=== PATIENT | female | born 1955 | race Caucasian/White ===

== ENCOUNTER 2016-12-09 20:16 | Inpatient (IN) | payer OTHER ==
[~2016-12-09] VITALS: Ht 172.7 cm; Wt 109.2 kg
[~2016-12-09 20:16] MED LIST: ADAL40KI SC; CEFU1TAB36 PO; CYAN10002 SC; FLUC200T4 PO; INSUINJ14 SC; INSUINJ4 SQ; LCTX PO; OXYC-164 PO; PANT40TA PO; SLWMEC PO; TRAM-10 PO
[2016-12-09] MEDS ORDERED: ALPR-385 PO (20:52)
[2016-12-09] MEDS ORDERED: ZOLP10TA6 PO (20:52)
[2016-12-09] MEDS ORDERED: LSX20 PO (20:52)
[2016-12-09] MEDS ORDERED: OXY/15 PO (20:52)
[2016-12-09] MEDS ORDERED: PROCHLORPERAZINE 5 MG/ML 2 ML VIAL IV STA (21:11)
[2016-12-09] MEDS ORDERED: SODIUM CHLORIDE 0.9% 1000ML 1,000 ML IV STA (21:11)
[2016-12-09] MEDS ORDERED: ONDANSETRON INJ 2 MG/ML 2 ML VIAL IV STA (21:11)
[2016-12-09 21:19] LABS: COMPLETE YES
[2016-12-09] MEDS ORDERED: INSDGI SQ (21:25)
[2016-12-09] MEDS ORDERED: NVLGI/PEN SQ (21:25)
[2016-12-09] MEDS ORDERED: ONDA4TAB9 PO (21:25)
[2016-12-09] MEDS: MoRPHine SULFATE 4 MG/ML 1 ML CARP\\VIAL IV PRN ×2 (21:30→23:57)
--- NOTE | 2016-12-09 21:46 | DIAGNOSTIC IMAGING REPORT ---
ADDENDUM A question 1 cm nodular density within the left upper lobe is likely due to the overlapping first rib. This appears similar to a 2015 examination. Follow-up nonemergent PA and lateral views of the chest are recommended for confirmation. Electronically signed by: Angelo Michele M.D. 12/09/2016 9:49 PM Dictated Date/Time: 12/09/2016 9:48 PM ORIGINAL REPORT CHEST ONE VIEW PORTABLE HISTORY: Generalized abdominal pain. COMPARISON: Chest 09/09/2015. FINDINGS: The lungs are clear. Cardiac silhouette is normal in size. No pleural effusions. No pneumothorax. IMPRESSION: No acute process. Electronically signed by: Angelo Michele M.D. 12/09/2016 9:45 PM Dictated Date/Time: 12/09/2016 9:39 PM
[2016-12-09] MEDS ORDERED: GABA1CAP5 PO (22:00)
--- NOTE | 2016-12-09 22:35 | DIAGNOSTIC IMAGING REPORT ---
ABDOMEN AND PELVIS CT WITHOUT CONTRAST CT DOSE: 1535.66 mGy.cm HISTORY: Generalized abdominal pain. TECHNIQUE: Multiaxial CT images of the abdomen and pelvis were performed without contrast. COMPARISON STUDY: Abdomen and pelvis CT 09/09/2015. FINDINGS: Linear densities the left lung base consistent with subsegmental atelectasis. Stable small cyst/bleb within the right lung base. No pneumoperitoneum. No pneumatosis. Levoscoliosis and degenerative changes within the lumbar spine are again noted. A few tiny stones within the gallbladder. No gallbladder wall thickening. Mild hepatic steatosis. A few punctate calcifications within the right hepatic lobe. The unenhanced spleen, adrenal glands, and pancreas are unremarkable. Right-sided nephrolithiasis. No hydronephrosis. No retroperitoneal lymphadenopathy. Pelvic floor collapse. The uterus is within normal limits. Prior midline incision with a lower incisional hernia containing a few loops of small bowel. This has increased in size. Right lower quadrant ostomy. No evidence for bowel obstruction. There is mild thickening of the small bowel seen throughout the abdomen. Mild inflammatory change seen within the right side the abdomen. This has slightly improved. 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 Evidence for prior subtotal colectomy. Small bowel anastomosis seen within the right side the abdomen. IMPRESSION: 1. Diffuse mild thickening seen throughout the small bowel. This is consistent with a nonspecific enteritis. 2. Improvement in the inflammatory changes within the right side of the abdomen. 3. Multiple fistulas between the bowel loops within the right side the abdomen remains unchanged. 4. No evidence for bowel obstruction. 5. Increase in size in the fat-containing lower midline incisional hernia. 6. Postoperative changes as described above. 7. Right-sided nephrolithiasis. No hydronephrosis. A cholelithiasis. Electronically signed by: Angelo Michele M.D. 12/09/2016 10:33 PM Dictated Date/Time: 12/09/2016 10:25 PM
--- NOTE | 2016-12-09 23:02 | EMERGENCY ROOM VISIT NOTE ---
History Report prepared by Jessica: Paula Arredondo Under the Supervision of: Dr. Artis Watt D.O. First contact with patient: 21:06 Chief Complaint: GI ASSESSMENT Stated Complaint: STOMACH PAIN,VOMITING,HAS CHRONES DISEASE History of Present Illness The patient is a 61 year old female who presents to the Emergency Room with complaints of constant abdominal pain beginning 3 days ago. The patient states that she has multiple hernias and she is having more abdominal pain than usual. She reports that she has a history of Crohn's Disease and she notes that she has a colostomy bag that she has been emptying her bag 6-7 times a day. She reports that she had a CT scan 6 days ago. The patient complains of frequent burping, tiredness, feeling feverish, and nausea. She denies any fever. She notes that the abdominal pain feels like hernias pulling. Source of History: patient Onset: 3 days ago Position: abdomen Quality: other (pulling) Timing: constant Associated Symptoms: + nausea, No fevers Note: The patient complains of frequent burping, tiredness, and feeling feverish. Review of Systems See HPI for pertinent positives & negatives. A total of 10 systems reviewed and were otherwise negative. Past Medical & Surgical Medical Problems: (1) Crohns disease (2) Depression (3) Diverticulosis (4) DM2 (diabetes mellitus, type 2) (5) H/O Clostridium difficile infection (6) S/P ORIF (open reduction internal fixation) fracture Surgical Problems: (1) delivery delivered (2) H/O colonoscopy (3) H/O esophagogastroduodenoscopy (4) H/O exploratory laparotomy (5) History of appendectomy (6) History of partial colectomy Family History Diabetes mellitus FATHER MOTHER FHx: cancer FHx: heart disease Hypertension Social History Smoking Status: Never Smoker Alcohol Use: none Marital Status: single Housing Status: lives with family Occupation Status: disabled Current/Historical Medications Scheduled Adalimumab (Humira Pen), 0.8 ML SC 2XWK Alprazolam (Xanax), 1 MG PO TID Gabapentin (Neurontin), 400 MG PO TID Insulin Aspart (Novolog Flexpen), SQ TIDM Insulin Glargine (Lantus), 45 UNITS SQ HS Oxycodone Hcl (Oxycodone Hcl), 15 MG PO PRN UD Scheduled PRN Furosemide (Furosemide), 20 MG PO DAILY PRN for WT GAIN Ondansetron (Ondansetron HCl), 1 TAB PO Q8 PRN for Nausea Zolpidem Tartrate (Zolpidem Tartrate), 10 MG PO HS PRN for Sleep Allergies Coded Allergies: No Known Allergies (Unverified , 08/15/15) Physical Exam Vital Signs Date Time Temp Pulse Resp B/P (MAP) Pulse Ox O2 Delivery O2 Flow Rate FiO2 12/09/16 21:31 92 16 142/66 99 Room Air 12/09/16 21:11 86 12/09/16 20:21 36.7 87 16 126/77 97 Room Air Physical Exam CONSTITUTIONAL/VITAL SIGNS: Reviewed / noted above. GENERAL: Non-toxic in appearance. INTEGUMENTARY: Warm, dry, and [place].Grade 1 sacral decubitus ulcer. HEAD: Normocephalic. EYES: without scleral icterus or trauma. ENT/OROPHARYNX: clear and moist. LYMPHADENOPATHY/NECK: Is supple without lymphadenopathy or meningismus. RESPIRATORY: Lungs clear and equal. CARDIOVASCULAR: Regular rate and rhythm. GI/ABDOMEN: Soft and nontender. No organomegaly or pulsatile mass. No rebound or guarding. Normal bowel sounds. Colostomy right abdominal zone, intestine is pink with liquid brownish discharge. No significant abdominal tenderness. EXTREMITIES: Warm and well perfused. BACK: No CVA tenderness. NEUROLOGICAL: Intact without focal deficits. PSYCHIATRIC: normal affect. MUSCULOSKELETAL: Normally developed with good muscle tone. Medical Decision & Procedures ER Provider Diagnostic Interpretation: Radiology results as stated below per my review and radiologist interpretation: CHEST ONE VIEW PORTABLE FINDINGS: The lungs are clear. Cardiac silhouette is normal in size. No pleural effusions. No pneumothorax. IMPRESSION: No acute process. Electronically signed by: Angelo Michele M.D. 12/09/2016 9:45 PM Dictated Date/Time: 12/09/2016 9:39 [address] AND PELVIS CT WITHOUT CONTRAST FINDINGS: Linear densities the left lung base consistent with subsegmental atelectasis. Stable small cyst/bleb within the right lung base. No pneumoperitoneum. No pneumatosis. Levoscoliosis and degenerative changes within the lumbar spine are again noted. A few tiny stones within the gallbladder. No gallbladder wall thickening. Mild hepatic steatosis. A few punctate calcifications within the right hepatic lobe. The unenhanced spleen, adrenal glands, and pancreas are unremarkable. Right-sided nephrolithiasis. No hydronephrosis. No retroperitoneal lymphadenopathy. Pelvic floor collapse. The uterus is within normal limits. Prior midline incision with a lower incisional hernia containing a few loops of small bowel. This has increased in size. Right lower quadrant ostomy. No evidence for bowel obstruction. There is mild thickening of the small bowel seen throughout the abdomen. Mild inflammatory change seen within the right side the abdomen. This has slightly improved. 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 Evidence for prior subtotal colectomy. Small bowel anastomosis seen within the right side the abdomen. IMPRESSION: 1. Diffuse mild thickening seen throughout the small bowel. This is consistent with a nonspecific enteritis. 2. Improvement in the inflammatory changes within the right side of the abdomen. 3. Multiple fistulas between the bowel loops within the right side the abdomen remains unchanged. 4. No evidence for bowel obstruction. 5. Increase in size in the fat-containing lower midline incisional hernia. 6. Postoperative changes as described above. 7. Right-sided nephrolithiasis. No hydronephrosis. A cholelithiasis. Electronically signed by: Angelo Michele M.D. 12/09/2016 10:33 PM Dictated Date/Time: 12/09/2016 10:25 PM Laboratory Results 12/09/16 20:55 Red Blood Count 5.52, Mean Corpuscular Volume 90.4, Mean Corpuscular Hemoglobin 31.9, Mean Corpuscular Hemoglobin Concent 35.3, Mean Platelet Volume 11.8, Neutrophils (%) (Auto) 66.9, Lymphocytes (%) (Auto) 24.0, Monocytes (%) (Auto) 8.2, Eosinophils (%) (Auto) 0.3, Basophils (%) (Auto) 0.2, Neutrophils # (Auto) 13.41, Lymphocytes # (Auto) 4.81, Monocytes # (Auto) 1.65, Eosinophils # (Auto) 0.07, Basophils # (Auto) 0.04 12/09/16 20:55 Test 12/09/16 20:55 12/09/16 23:15 White Blood Count 20.06 K/uL (4.8-10.8) Red Blood Count 5.52 M/uL (4.2-5.4) Hemoglobin 17.6 g/dL (12.0-16.0) Hematocrit 49.9 % (37-47) Mean Corpuscular Volume 90.4 fL (80-100) Mean Corpuscular Hemoglobin 31.9 pg (25-34) Mean Corpuscular Hemoglobin Concent 35.3 g/dl (32-36) Platelet Count 237 K/uL (130-400) Mean Platelet Volume 11.8 fL (7.4-10.4) Neutrophils (%) (Auto) 66.9 % Lymphocytes (%) (Auto) 24.0 % Monocytes (%) (Auto) 8.2 % Eosinophils (%) (Auto) 0.3 % Basophils (%) (Auto) 0.2 % Neutrophils # (Auto) 13.41 K/uL (1.4-6.5) Lymphocytes # (Auto) 4.81 K/uL (1.2-3.4) Monocytes # (Auto) 1.65 K/uL (0.11-0.59) Eosinophils # (Auto) 0.07 K/uL (0-0.5) Basophils # (Auto) 0.04 K/uL (0-0.2) RDW Standard Deviation 55.2 fL (36.4-46.3) RDW Coefficient of Variation 16.5 % (11.5-14.5) Immature Granulocyte % (Auto) 0.4 % Immature Granulocyte # (Auto) 0.08 K/uL (0.00-0.02) Prothrombin Time 11.1 SECONDS (9.0-12.0) Prothromb Time International Ratio 1.0 (0.9-1.1) Activated Partial Thromboplast Time 27.2 SECONDS (21.0-31.0) Partial Thromboplastin Ratio 1.0 Anion Gap 11.0 mmol/L (3-11) Estimated GFR () 36.6 Estimated GFR (Non- 31.5 BUN/Creatinine Ratio 10.7 (10-20) Calcium Level 9.6 mg/dl (8.5-10.1) Total Bilirubin 0.6 mg/dl (0.2-1) Direct Bilirubin 0.2 mg/dl (0-0.2) Aspartate Amino Transf (AST/SGOT) 14 U/L (15-37) Alanine Aminotransferase (ALT/SGPT) 24 U/L (12-78) Alkaline Phosphatase 87 U/L (45-117) Total Protein 7.2 gm/dl (6.4-8.2) Albumin 3.6 gm/dl (3.4-5.0) Lipase 98 U/L (73-393) Laboratory results as stated above per my review. Medications Administered Medications (Trade) Dose Ordered Sig/Antoni Route Start Time Stop Time Status Last Admin Dose Admin Sodium Chloride 1,000 ml @ 999 mls/hr Q1H1M STAT IV 12/09/16 21:11 12/09/16 22:11 DC 12/09/16 21:29 999 MLS/HR Morphine Sulfate (MoRPHine SULFATE INJ) 4 mg Q1H PRN IV 12/09/16 21:15 12/23/16 21:14 12/09/16 21:30 4 MG Prochlorperazine Edisylate (Compazine Inj) 10 mg NOW STAT IV 12/09/16 21:11 12/09/16 21:14 DC 12/09/16 21:29 10 MG ED Course 2106: Previous medical records were reviewed. The patient was evaluated in room B6. A complete history and physical examination was performed. 1: Compazine Inj 10mg IV, Zofran Inj 4mg IV, Sodium Chloride 1000 ml @ 999 mls/hr IV. 5: Morphine Sulfate 4mg PRN IV pain. 2259: Discussed the patient's case with Dr. Tomlin of [facility]. The patient will be evaluated for further treatment and disposition. 2308: On reevaluation, the patient is doing well. I discussed the results and findings with the patient. She verbalized agreement of the treatment plan. I spoke with Dr. Tomlin of the [facility] Hospitalist Service. The patient will be evaluated for further management and care. Medical Decision Differential considered: pancreatitis, hepatitis, or acute cholecystitis, AAA, UTI, pyelonephritis, kidney stones, appendicitis, diverticulitis, shingles, bowel obstruction mesenteric ischemia, intussusception,hernia, testicular torsion, ovarian torsion, ruptured ovarian cyst,ectopic , . Medication Reconciliation: I attest that I have personally reviewed the patient' s current medication list. Blood pressure Screening: Patient was found to have normal blood pressure on screening and does not require follow-up. This is a 61-year-old female who presents to the ED with a chief complaint of abdominal discomfort. The patient has had the symptoms for at least 6 days. Her symptoms have progressively worsened. The patient also complains of some nausea. She is becoming increasingly weak as she has not had much of an appetite. Her vital signs are normal. Her physical exam reveals mild diffuse tenderness. Colostomy appears to be functioning normally. There is no was blood in the stool. She does have a grade 1 sacral decubitus ulcer. Chest x- ray did not show acute disease. CT scan of the abdomen and pelvis reveals mild diffuse enteritis. White blood cell count is 20.06. Creatinine is elevated 1.7. Stool sample is pending. The patient will be seen by the hospitalist for further inpatient evaluation and care. Consults Time Called: [phone] Consulting Physician: Dr. Nabor Gregg Returned Call: [phone] Discussed the patient's case with Dr. Tomlin of [facility]. The patient will be evaluated for further treatment and disposition. Impression Primary Impression: Enteritis Additional Impressions: Abdominal pain Weakness Scribe Attestation The scribe's documentation has been prepared under my direction and personally reviewed by me in its entirety. I confirm that the note above accurately reflects all work, treatment, procedures, and medical decision making performed by me. Departure Information Dispostion Being Evaluated By Hospitalist Referrals No Doctor, Assigned (PCP) Patient Instructions [facility] Problem Qualifiers
[2016-12-09] MEDS ORDERED: ONDANSETRON INJ 2 MG/ML 2 ML VIAL ONE (23:48)
[2016-12-10] MEDS ORDERED: INSULIN GLARGINE SOLOSTAR 100 UNITS/ML 3 ML PEN SQ ONE (00:06)
[2016-12-10 00:12] LABS: PARTIAL THROMBOPLASTIN RATIO 1.1; PROTHROMBIN TIME (PATIENT) 10.6 SECONDS (9.0-12.0)
[2016-12-10] MEDS ORDERED: METHYLPREDNISOLONE 125 MG VIAL IV STA (00:12)
[2016-12-10] MEDS ORDERED: ONDANSETRON INJ 2 MG/ML 2 ML VIAL IV PRN (00:15)
[2016-12-10] MEDS ORDERED: OXYCODONE/ACETAMINOPHEN 5-325 TAB PO PRN (00:15)
[2016-12-10] MEDS ORDERED: HYDROmorphone INJ 1 MG/ML SYR IV PRN (00:15)
[2016-12-10] MEDS ORDERED: ACETAMINOPHEN 325 MG TAB PO PRN (00:15)
[2016-12-10 00:20] VITALS: BP 142/84; PULSE 84; TEMP 36.8; O2SAT 97
[2016-12-10 00:22] LABS: BASO % 0.2 %; BASO ABS # 0.03 K/uL (0-0.2); COMPLETE YES; EOS % 1.1 %; HEMATOCRIT 37.8 % (37-47); IG% 0.4 %; LYMPH % 13.3 %; LYMPH ABS # 1.89 K/uL (1.2-3.4); MEAN CELL VOLUME 77.5 fL (80-100); MEAN CORPUSCULAR HEMOGLOBIN 25.4 pg (25-34); MEAN CORPUSCULAR HGB CONC 32.8 g/dl (32-36); MEAN PLATELET VOLUME 9.5 fL (7.4-10.4); MONO % 7.2 %; NEUT % 77.8 %; PLATELET COUNT 289 K/uL (130-400); RED BLOOD COUNT 4.88 M/uL (4.2-5.4); WHITE BLOOD COUNT 14.26 K/uL (4.8-10.8)
[2016-12-10 00:41] LABS: ALKALINE PHOSPHATASE 126 U/L (45-117); ALT/SGPT 22 U/L (12-78); AST/SGOT 30 U/L (15-37); BLOOD UREA NITROGEN 61 mg/dl (7-18); BUN/CREATININE RATIO 24.3 (10-20); CALCIUM 7.9 mg/dl (8.5-10.1); CARBON DIOXIDE 16 mmol/L (21-32); CHLORIDE 107 mmol/L (98-107); GLUCOSE 247 mg/dl (70-99); MAGNESIUM 1.5 mg/dl (1.8-2.4); POTASSIUM 3.6 mmol/L (3.5-5.1); SODIUM 135 mmol/L (136-145); THYROID STIMULATING HORMONE 0.981 uIu/ml (0.300-4.500)
[2016-12-10] MEDS ORDERED: NSS + 20MEQ KCL 1000ML 1,000 ML IV ONE (00:45)
[2016-12-10] MEDS ORDERED: METHYLPREDNISOLONE IV 20 MG in SYRINGE 0 ML IV STA (00:48)
[2016-12-10] MEDS ORDERED: INSULIN ASPART 100 UNITS/ML 3 ML PEN SC ONE (00:53)
[2016-12-10] MEDS ORDERED: GLUCOSE 10 TABS/TUBE PO PRN (01:00)
[2016-12-10] MEDS ORDERED: METRONIDAZOLE / NSS 500 MG in PREMIXED NSS 100 ML IV SCH ×2 (01:00)
[2016-12-10] MEDS ORDERED: GLUCOSE 40% GEL 15 GM TUBE PO PRN (01:00)
[2016-12-10] MEDS ORDERED: GLUCAGON FOR INJ 1 MG VIAL SQ PRN (01:00)
[2016-12-10] MEDS ORDERED: DEXTROSE 50% 50 ML SYR IV PRN (01:00)
[2016-12-10] MEDS: MAGNESIUM SULFATE 1GM / D5W 1 GM in PREMIXED IN D5W 100 ML IV SCH ×2 (01:20→02:26)
[2016-12-10 03:10] VITALS: BP 142/84; PULSE 84; TEMP 36.8
--- NOTE | 2016-12-10 03:52 | HISTORY & PHYSICAL EXAMINATION ---
DATE OF ADMISSION: 12/09/2016 PRIMARY CARE DOCTOR: Dr. Olivas CHIEF COMPLAINT: Worsening abdominal pain. HISTORY OF PRESENT ILLNESS: History obtained from the patient and records. Medical history is significant for IBD status post surgery on Humira, history of C. diff, HTN, DM2 insulin requiring, chronic pain and drug seeking behavior as per records, medication noncompliance as per records. Recent confinement was in September 2015 for SBO, improved w/o surgery. In the last few days, the patient has had worsening of her achy central abdominal pain, with nausea, emesis, increased ostomy output, nonbloody. No fever or chills. Poor appetite. No chest pain or shortness of breath. Patient was brought to the Emergency Room. MEDICAL HISTORY: As above. Last colonoscopy in August 2015 showed stricture at the ileocolonic anastomosis, colon normal. Recent [facility] outpatient visit in last September 2016. As per note, concerns about stricture, medication noncompliance. CT of abdomen and pelvis at [facility] done in November 2016 showed wall thickening with mesenteric edema, right lower quadrant colostomy, left ventral hernia with small bowel loops, gallstones, nonobstructing small stone lower pole right kidney. OPERATIONS: She has had bowel surgery and appendectomy. HOME MEDICATIONS: Include; Humira, Xanax, furosemide, Neurontin, NovoLog, Lantus, oxycodone, Zofran and zolpidem. ALLERGIES: No known drug allergies. FAMILY HISTORY: IBD. PERSONAL AND SOCIAL HISTORY: Nonsmoker. No chronic intake of alcoholic beverages. Disabled. REVIEW OF SYSTEMS: As per HPI. all other ROS negative PHYSICAL EXAMINATION: VITAL SIGNS: Blood pressure was noted to be 140/66, pulse rate 92, RR 16, temperature 36.6 O2 sats 98 on room air. GENERAL: Noted to be wane, obese, in no respiratory distress. SKIN: Normal color. HEENT: [place] palpebral conjunctivae. Dry mucosa. NECK: Short neck. LUNGS: Decreased effort. HEART: Regular rate and rhythm. ABDOMEN: Ostomy noted. Some distention. Central abdominal tenderness. EXTREMITIES: Minimal LE edema. no tenderness NEUROLOGIC: No gross focality except for some lethargy LABORATORIES: Hemoglobin was noted to be 12.4, hematocrit 37 white cell count 14.2 and platelets of 289. Sodium 135, potassium 3.6 chloride 107, CO2 16, crea 2.8 and glucose 247. Hemoglobin A1c from August [address] of abdomen and pelvis showed diffuse thickening small bowel, nonspecific enteritis, multiple fistulas between bowel loops. No bowel obstruction. Postop changes, right-sided nephrolithiasis. C. diff test is pending. ASSESSMENT: 1. Acute on chronic abdominal pain abn CT abd/pelvis hx IBD sp surgery prob IBD flare up rule out recurrent Clostridium difficile. Patient is not septic. 2. acute renal failure secondary to above 3. HTN, slightly elevated 4. DM2, insulin requiring suboptimal control as of recent HgA1c. 5. deconditioning PLAN: GMF analgesia, steroids. GI consult for possible IBD flare up and abdominal pain. (Patient known to Dr. Bee.) baseline UA. monitor creatinine response to IVF stool C. diff. Flagyl for now for presumptive C. diff in light of leukocytosis. dc Flagyl if stool cdif negative DVT prophylaxis, Heparin subQ. Basal insulin adjusted for clear liquid diet for now ISS BG goal 140-180. Carb count coverage indicated for suboptimal blood sugar control. Patient is due for hemoglobin A1c check. PT/OT eval. Full code. MTDD
[2016-12-10 06:23] LABS: ESTIMATED AVERAGE GLUCOSE 226 mg/dl; HA1C FLAG Normal (Normal)
[2016-12-10 06:42] LABS: MAGNESIUM 2.1 mg/dl (1.8-2.4)
[2016-12-10 07:42] VITALS: BP 124/67; PULSE 92; TEMP 36.5; O2SAT 98
[2016-12-10] MEDS ORDERED: METHYLPREDNISOLONE IV 20 MG in SYRINGE 0 ML IV SCH (08:00)
[2016-12-10] MEDS: GABAPENTIN 100 MG CAP PO SCH ×3 (08:09→20:51)
[2016-12-10] MEDS: ALPRAZOLAM 0.5 MG TAB PO SCH ×3 (08:09→20:51)
[2016-12-10] MEDS: INSULIN ASPART 100 UNITS/ML 3 ML PEN SC SCH ×4 (08:14→20:51)
[2016-12-10] MEDS: HEPARIN SOD 5000 UNIT/0.5 ML CARP SQ SCH ×3 (08:14→23:28)
[2016-12-10 08:23] LABS: COMPLETE YES; EOS % 0.1 %; HEMATOCRIT 35.9 % (37-47); IG% 0.4 %; LYMPH % 7.2 %; LYMPH ABS # 0.93 K/uL (1.2-3.4); MEAN CELL VOLUME 78.4 fL (80-100); MEAN CORPUSCULAR HEMOGLOBIN 26.2 pg (25-34); MEAN CORPUSCULAR HGB CONC 33.4 g/dl (32-36); MEAN PLATELET VOLUME 9.6 fL (7.4-10.4); MONO % 0.9 %; NEUT % 91.4 %; PLATELET COUNT 240 K/uL (130-400); RED BLOOD COUNT 4.58 M/uL (4.2-5.4); WHITE BLOOD COUNT 12.87 K/uL (4.8-10.8)
[2016-12-10] MEDS ORDERED: INSULIN GLARGINE SOLOSTAR 100 UNITS/ML 3 ML PEN SC ONE (08:27)
[2016-12-10 08:55] LABS: BLOOD UREA NITROGEN 59 mg/dl (7-18); BUN/CREATININE RATIO 26.9 (10-20); CARBON DIOXIDE 14 mmol/L (21-32); CHLORIDE 108 mmol/L (98-107); GLUCOSE 411 mg/dl (70-99); POTASSIUM 4.1 mmol/L (3.5-5.1); SODIUM 134 mmol/L (136-145)
[2016-12-10] MEDS ORDERED: INSULIN GLARGINE SOLOSTAR 100 UNITS/ML 3 ML PEN SC SCH ×5 (09:00→21:00)
[2016-12-10] MEDS ORDERED: INSULIN GLARGINE SOLOSTAR 100 UNITS/ML 3 ML PEN SQ SCH (09:00)
[2016-12-10 09:10] LABS: BETA-HYDROXYBUTYRATE 2.61 mg/dL (0.2-2.81)
[2016-12-10 10:38] VITALS: BP 124/74; PULSE 79; O2SAT 99
--- NOTE | 2016-12-10 11:50 | Progress Note ---
Progress Note Date of Service Dec 10, 2016. Progress Note ATTENDING NOTE : pt admitted with Crohn's colitis /flare started on IV Steroid BSG elevated > 400 baseline poorly controlled DM Hb A1c 9.5 ( Estimated avg glucose 226 ) tightened insulin sliding scale coverage increased basal Lantus to 25 U BID will give 5 units of extra dose now ( got 20 U in AM ) Pharmacy consulted for glycemic management
[2016-12-10] MEDS ORDERED: PHARMACY GLYCEMIC MGMT CONSULT PRN (11:54)
[2016-12-10] MEDS: SODIUM CHLORIDE 0.9% 1000ML 1,000 ML IV SCH ×2 (12:11→22:05)
[2016-12-10] MEDS ORDERED: INSULIN REGULAR 5 UNITS in SYRINGE 0 ML IV ONE (12:15)
--- NOTE | 2016-12-10 13:22 | Gastrointestinal Consultation ---
Gastrointestinal Consultation Date of Consultation: Dec 10, 2016 Attending Physician: Devonte Bradford Consulting Physician: Jasmyne Bee Reason for Consultation: Abd pain; abnormal CT scan History of Present Illness Patient is a 61 year old female who presented to ED for c/o abd pain. She has hx of Crohn's disease complicated by penetrating, fistulizing, stricturing disease of small bowel. She has hx of abscess, fistula, phlegmon formation ended up w partial colectomy and R sided colostomy, abd hernias. She also had recurrent issues w sepsis, pneumonia, SBO. Unfortunately she often misses her GI appt and also has hx of med non compliance, drug seeking behaviors. She was seen by Colorectal Surgery (Dr. Suimt Juarez) in September 2016 - surgical plans at this time for ongoing abd pain, hernia repair or ostomy reversal until her Crohn's is better managed. She also saw Dr. Bee last in September 2016. She reports that she is currently using her Humira injections 2x a month. Denies use of antibx, steroids. She sees a Pain Management physician in [facility] prescribed Oxycodone for abd pain, which she takes 4x a day as needed. Her last colonoscopy was done on 08/2015: severe stenosis at ileocolonic anastomosis. She noticed increased abd pain recently in last few days w increased ostomy output, n/v. She has decreased appetite, but tolerated CL diet this AM and willing for dietary advancement. Her ostomy is noted to put out soft but formed stools. No blood noted. Labs showed leukocytosis but this is at her baseline, H/ H stable. CMP notable for increased Cr to 2.2, from baseline mid 1s. Cdiff negative. CT abd/pelvis : IMPRESSION: 1. Diffuse mild thickening seen throughout the small bowel. This is consistent with a nonspecific enteritis. 2. Improvement in the inflammatory changes within the right side of the abdomen. 3. Multiple fistulas between the bowel loops within the right side the abdomen remains unchanged. 4. No evidence for bowel obstruction. 5. Increase in size in the fat-containing lower midline incisional hernia. 6. Postoperative changes as described above. 7. Right-sided nephrolithiasis. No hydronephrosis. A cholelithiasis. Past Medical/Surgical History Medical Problems: (1) Abdominal pain Status: Acute (2) Enteritis Status: Acute (3) Fall Status: Acute (4) Feculent vomit on examination Status: Acute (5) Hydronephrosis, left Status: Acute (6) Incarcerated ventral hernia Status: Acute (7) Low back pain Status: Acute (8) Rib pain on right side Status: Acute (9) Right shoulder pain Status: Acute (10) Small bowel obstruction Status: Acute (11) Ureteral calculus, left Status: Acute (12) Weakness Status: Acute Past Medical History: See above, also hx of Cdiff, DM II. Past Surgical History: See above. Family History Diabetes mellitus FATHER MOTHER FHx: cancer FHx: heart disease Hypertension Social History Smoking Status: Unknown if Ever Smoked Alcohol Use: none Marital Status: single Housing Status: lives with family Occupation Status: disabled Allergies Coded Allergies: No Known Allergies (Unverified , 08/15/15) Current Medications Home Meds and Scripts Medications Dose Route/Sig Max Daily Dose Days Date Category Dose Instructions Ondansetron HCl (Ondansetron) 4 Mg Tab 1 Tab PO Q8 PRN 12/09/16 Reported Novolog Flexpen (Insulin Aspart) 100 Units/Ml Inj SQ TIDM 12/09/16 Reported PER SLIDING SCALE Lantus (Insulin Glargine) 100 Unit/Ml Inj 45 Units SQ HS 12/09/16 Reported Oxycodone Hcl 15 Mg Tab 15 Mg PO PRN UD 12/09/16 Reported Zolpidem Tartrate 10 Mg Tab 10 Mg PO HS PRN 12/09/16 Reported Xanax (Alprazolam) 1 Mg Tab 1 Mg PO TID 12/09/16 Reported Furosemide 20 Mg Tab 20 Mg PO DAILY PRN 12/09/16 Reported Neurontin (Gabapentin) 400 Mg Cap 400 Mg PO TID 09/09/15 Reported Humira Pen (Adalimumab) 40 Mg/0.8 Ml Kit 0.8 Ml SC [id number] 07/24/15 Reported Review of Systems Constitutional: No fever, No chills Respiratory: No cough, No shortness of breath Cardiac: No chest pain Abdomen: + pain, + nausea, + vomiting, + diarrhea, No GI bleeding Skin: No rash, No itch Physical Exam Date Time Temp Pulse Resp B/P (MAP) Pulse Ox O2 Delivery O2 Flow Rate FiO2 12/10/16 08:00 Room Air 12/10/16 07:42 36.5 92 18 124/67 (86) 98 Room Air 12/10/16 03:10 36.8 84 18 142/84 Room Air 12/10/16 00:20 36.8 84 18 142/84 (103) 97 Room Air 12/10/16 00:14 85 14 133/67 94 12/09/16 23:38 87 18 119/75 99 Room Air 12/09/16 21:31 92 16 142/66 99 Room Air 12/09/16 21:11 86 12/09/16 20:21 36.7 87 16 126/77 97 Room Air General Appearance: + mild distress, + obese Eyes: normal inspection, PERRL, EOMI Neck: supple, no JVD, trachea midline Respiratory/Chest: normal breath sounds, no respiratory distress, no accessory muscle use Cardiovascular: regular rate, rhythm, no gallop, no murmur Abdomen: + pertinent finding (Diffuse abd pain but mostly on LLQ area. R sided ostomy w brown, soft formed stools ) Neurologic/Psych: alert, normal mood/affect, oriented x 3 Skin: normal color, no jaundice, no rash Laboratory Results Last 24 Hours Test 12/09/16 20:55 12/09/16 23:34 12/10/16 01:26 12/10/16 05:54 White Blood Count K/uL 14.26 K/uL Red Blood Count M/uL 4.88 M/uL Hemoglobin g/dL 12.4 g/dL Hematocrit % 37.8 % Mean Corpuscular Volume fL 77.5 fL Mean Corpuscular Hemoglobin pg 25.4 pg Mean Corpuscular Hemoglobin Concent g/dl 32.8 g/dl Platelet Count K/uL 289 K/uL Mean Platelet Volume fL 9.5 fL Neutrophils (%) (Auto) % 77.8 % Lymphocytes (%) (Auto) % 13.3 % Monocytes (%) (Auto) % 7.2 % Eosinophils (%) (Auto) % 1.1 % Basophils (%) (Auto) % 0.2 % Neutrophils # (Auto) K/uL 11.11 K/uL Lymphocytes # (Auto) K/uL 1.89 K/uL Monocytes # (Auto) K/uL 1.02 K/uL Eosinophils # (Auto) K/uL 0.15 K/uL Basophils # (Auto) K/uL 0.03 K/uL RDW Standard Deviation fL 42.9 fL RDW Coefficient of Variation % 15.3 % Immature Granulocyte % (Auto) % 0.4 % Immature Granulocyte # (Auto) K/uL 0.06 K/uL Prothrombin Time SECONDS 10.6 SECONDS Prothromb Time International Ratio 1.0 Activated Partial Thromboplast Time SECONDS 28.5 SECONDS Partial Thromboplastin Ratio 1.1 Sodium Level mmol/L 135 mmol/L Potassium Level mmol/L 3.6 mmol/L Chloride Level mmol/L 107 mmol/L Carbon Dioxide Level mmol/L 16 mmol/L Anion Gap mmol/L 12.0 mmol/L Blood Urea Nitrogen mg/dl 61 mg/dl Creatinine mg/dl 2.50 mg/dl Est Creatinine Clear Calc Drug Dose ml/min Estimated GFR () 22.9 Estimated GFR (Non- 19.8 BUN/Creatinine Ratio 24.3 Random Glucose mg/dl 247 mg/dl Calcium Level mg/dl 7.9 mg/dl Total Bilirubin mg/dl 0.2 mg/dl Direct Bilirubin mg/dl < 0.1 mg/dl Aspartate Amino Transf (AST/SGOT) U/L 30 U/L Alanine Aminotransferase (ALT/SGPT) U/L 22 U/L Alkaline Phosphatase U/L 126 U/L Total Protein gm/dl 8.0 gm/dl Albumin gm/dl 2.9 gm/dl Lipase U/L 538 U/L 379 U/L Estimated Average Glucose 226 mg/dl Hemoglobin A1c 9.5 % Magnesium Level 1.5 mg/dl 2.1 mg/dl Thyroid Stimulating Hormone (TSH) 0.981 uIu/ml Bedside Glucose 228 mg/dl Test 12/10/16 07:41 12/10/16 08:13 12/10/16 11:33 Bedside Glucose 355 mg/dl 450 mg/dl White Blood Count 12.87 K/uL Red Blood Count 4.58 M/uL Hemoglobin 12.0 g/dL Hematocrit 35.9 % Mean Corpuscular Volume 78.4 fL Mean Corpuscular Hemoglobin 26.2 pg Mean Corpuscular Hemoglobin Concent 33.4 g/dl Platelet Count 240 K/uL Mean Platelet Volume 9.6 fL Neutrophils (%) (Auto) 91.4 % Lymphocytes (%) (Auto) 7.2 % Monocytes (%) (Auto) 0.9 % Eosinophils (%) (Auto) 0.1 % Basophils (%) (Auto) 0.0 % Neutrophils # (Auto) 11.77 K/uL Lymphocytes # (Auto) 0.93 K/uL Monocytes # (Auto) 0.11 K/uL Eosinophils # (Auto) 0.01 K/uL Basophils # (Auto) 0.00 K/uL RDW Standard Deviation 44.4 fL RDW Coefficient of Variation 15.4 % Immature Granulocyte % (Auto) 0.4 % Immature Granulocyte # (Auto) 0.05 K/uL Sodium Level 134 mmol/L Potassium Level 4.1 mmol/L Chloride Level 108 mmol/L Carbon Dioxide Level 14 mmol/L Anion Gap 12.0 mmol/L Blood Urea Nitrogen 59 mg/dl Creatinine 2.20 mg/dl Estimated GFR () 26.8 Estimated GFR (Non- 23.1 BUN/Creatinine Ratio 26.9 Random Glucose 411 mg/dl Calcium Level 8.0 mg/dl Beta-Hydroxybutyric Acid 2.61 mg/dL Impression Patient is a 61 year old female w complicated Crohn's disease (fistula, stenosis , phlegmon development), s/p partial colectomy w R sided ostomy creation admitted for increased abd pain, n/v, diarrhea. Plan - Med compliance to be stressed in regards to Crohn's therapy. Currently on Humira injections [id number]. - She may f/u w Colorectal Surgery per previous schedule appt on 01/05/17 to discuss surgical option if any. - Avoid narcotics - Full liquid w low residue diet, advance as tolerated - Will give short steroid taper: DC Methylpred; start Prednisone 40mg daily x 3 days, 30mg daily x 3 days, 20mg daily x 3 days, 10mg daily x 3 days, then 5mg daily x 3 days. - Will defer antibx use at this time - Cdiff negative, will add stool cx - IVF support and symptomatic management otherwise.
[2016-12-10 13:33] VITALS: Ht 172.7 cm; Wt 109.2 kg
--- NOTE | 2016-12-10 13:54 | Pharmacy Progress Note ---
Glycemic Control Intl Consult Date of Service Dec 10, 2016. Scope Glycemic Pharmacist consulted by Dr Stratton on 12/10/16 for glycemic control and to write orders per [facility] inpatient glycemic control protocol Objective Accuchecks BSG (last 24hrs): Test 12/09/16 20:55 12/09/16 23:34 12/10/16 01:26 12/10/16 07:41 Random Glucose mg/dl (70-99) 247 mg/dl (70-99) Bedside Glucose 228 mg/dl (70-90) 355 mg/dl (70-90) Test 12/10/16 08:13 12/10/16 11:33 Random Glucose 411 mg/dl (70-99) Bedside Glucose 450 mg/dl (70-90) Laboratory Data (last 24hrs) Test 12/09/16 20:55 12/09/16 23:34 12/10/16 08:13 Anion Gap mmol/L 12.0 mmol/L 12.0 mmol/L BUN/Creatinine Ratio 24.3 26.9 Blood Urea Nitrogen mg/dl 61 mg/dl 59 mg/dl Creatinine mg/dl 2.50 mg/dl 2.20 mg/dl Potassium Level mmol/L 3.6 mmol/L 4.1 mmol/L Sodium Level mmol/L 135 mmol/L 134 mmol/L White Blood Count K/uL 14.26 K/uL 12.87 K/uL Red Blood Count M/uL 4.88 M/uL 4.58 M/uL Hemoglobin g/dL 12.4 g/dL 12.0 g/dL Hematocrit % 37.8 % 35.9 % Mean Corpuscular Volume fL 77.5 fL 78.4 fL Mean Corpuscular Hemoglobin pg 25.4 pg 26.2 pg Mean Corpuscular Hemoglobin Concent g/dl 32.8 g/dl 33.4 g/dl Platelet Count K/uL 289 K/uL 240 K/uL Mean Platelet Volume fL 9.5 fL 9.6 fL Neutrophils (%) (Auto) % 77.8 % 91.4 % Lymphocytes (%) (Auto) % 13.3 % 7.2 % Monocytes (%) (Auto) % 7.2 % 0.9 % Eosinophils (%) (Auto) % 1.1 % 0.1 % Basophils (%) (Auto) % 0.2 % 0.0 % Neutrophils # (Auto) K/uL 11.11 K/uL 11.77 K/uL Lymphocytes # (Auto) K/uL 1.89 K/uL 0.93 K/uL Monocytes # (Auto) K/uL 1.02 K/uL 0.11 K/uL Eosinophils # (Auto) K/uL 0.15 K/uL 0.01 K/uL Basophils # (Auto) K/uL 0.03 K/uL 0.00 K/uL Hemoglobin A1c 9.5 % HbA1c Test 12/09/16 23:34 Hemoglobin A1c 9.5 % (4.5-5.6) H Recent Pertinent Medications Outpatient Anti-diabetic Regimen: * NONCOMPLIANT * Pt states she only takes insulin "when tongue is thick" * She is prescribed Lantus 60 u BID and Novolog 15 units with meals Risk Factors for Insulin Resistance: * Steroids * Recent Surgery * Diet Assessment & Plan ASSESSMENT: * 61 yo diabetic F admitted with N/V, abdominal pain, noted to have severe hyperglycemia on admission * Pt typically does not take insulin at home so at baseline she is very resistant * She was given 10 units of Lantus last night by admitting provider, but BSGs continued to climb * She was initiated on Solumedrol IV and became very hyperglycemic after 2 doses, BSGs >450 mg/dL * Provider gave additional Lantus 20 units X 1 and consulted pharmacy * Today, IV steroids have been changed to PO prednisone taper * Given known resistance and steroid use, initiate insulin drip per protocol * In addition to the insulin drip, give scheduled Lantus and use set carb ratio * This will make transitioning off insulin drip easier * Pt remains on full liquid diet and as this advances her insulin needs will also increase * ADA & AACE recommend a goal blood sugar range 140-180 mg/dl for the majority of critically ill & non-critically ill patients. However, more stringent targets may be selected in individual cases. PLAN FOR INPATIENT GLYCEMIC CONTROL: * Initiate insulin drip per protocol * Goal range 140-180 mg/dL * Correctional Insulin with insulin drip * Novolog [facility] for carb coverage * Utilize carb ratio of 1 unit per 5 grams CHO consumed instead of calculator * Please note that the plan above was derived based on current level of insulin resistance and hospital stress. These recommendations are appropriate for inpatient admission only. Plan of care upon discharge will need to be reassessed to avoid potential outpatient hypo/hyperglycemia. Thank you.
[2016-12-10] MEDS ORDERED: INSULIN IV INFUSION PROTOCOL STA (14:19)
[2016-12-10] MEDS ORDERED: MODERATE STRESS LEVEL ONE (14:30)
[2016-12-10] MEDS ORDERED: INSULIN PROTOCOL GOAL RANGE ONE (14:30)
[2016-12-10] MEDS ORDERED: INSULIN PROTOCOL GOAL RANGE SCH (14:32)
[2016-12-10] MEDS ORDERED: INSULIN HUMAN REGULAR IV BOLUS 2.5 UNIT in SYRINGE 0 ML IV SCH (15:30)
[2016-12-10] MEDS: INSULIN REGULAR 250 UNITS in SODIUM CHLORIDE 0.9% 250ML 250 ML IV SCH ×4 (15:54→20:30)
[2016-12-10 16:00] VITALS: O2SAT 98
[2016-12-10 16:58] VITALS: BP 113/69; PULSE 74; TEMP 36.3; O2SAT 99
--- NOTE | 2016-12-10 22:34 | Progress Note ---
Internal Med Progress Note Date of Service: Dec 10, 2016. Provider Documentation: SUBJECTIVE: says feels very hungry , wants diet to be advanced to solid takes Xanax 1 mg three times daily as needed for anxiety -wants it be resumed as feeling overtly stressed for being in hospital with Crohn 's flare -with possibility that her chance of having colostomy reversal may not be possible soon On insulin gtt for persisted Hyperglycemia , while on steroid due to Crohn' s disease OBJECTIVE: Vital Signs-as noted below Exam: General-morbidly obese , anxious Eyes-sclera non icteric Lungs-CTA Heart-regular S1/S2 Abdomen-multiple surgical scar present , tenderness on RLQ , colostomy present Extremities-+ 1-2 bilat lower ext edema Neuro-AAO x3, no focal deficit Lab data as noted below. ASSESSMENT & PLAN: CROHN'S COLITIS : presents with Flare of inflammatory bowel disease follows with [facility] on [place] -questionable compliance appreciate input form GI team IV steroid D/yang started on slow taper with PO Prednisone Diet will be advanced to low fiber diet monitor clinically will need continued out pt follow up with GI HYPERGLYCEMIA /POORLY CONTROLLED DM TYPE 2 : BSG > 400 due to steroid , poor baseline glycemic control HB A1c > 9 appreciate input form Pharmacy for glycemic management started on IV insulin gtt pt is continued on Basal Lantus for easy transition to Subq regimen as BSG improves with reducing the steroid dose CHRONIC PAIN SYNDROME : follows with Pain clinic pt wants her home regimen of Oxycodone 15 mg QID PRN To be resumed mentions Percocet is not effective for pain control PRN Percocet /IV Dilaudid D/yang ordered for Oxycodone PRN per home regimen ANXIETY DISORDER : on Xanax 1 mg PO TID prn at home resumed DVT PROPHYLAXIS High risk for DVT sub q heparin DISPOSITION will be discharged home when medically stable Medicine follow up with Dr Olivas GI follow up with Dr Bee Vital Signs: Date Time Temp Pulse Resp B/P (MAP) Pulse Ox O2 Delivery O2 Flow Rate FiO2 12/10/16 16:58 36.3 74 18 113/69 (84) 99 Room Air 12/10/16 16:00 98 Room Air 12/10/16 10:38 79 99 12/10/16 08:00 Room Air 12/10/16 07:42 36.5 92 18 124/67 (86) 98 Room Air 12/10/16 03:10 36.8 84 18 142/84 Room Air 12/10/16 00:20 36.8 84 18 142/84 (103) 97 Room Air 12/10/16 00:14 85 14 133/67 94 12/09/16 23:38 87 18 119/75 99 Room Air Lab Results: Results Past 24 Hours Test 12/09/16 23:34 12/10/16 01:26 12/10/16 05:54 12/10/16 07:41 Range/Units White Blood Count 14.26 4.8-10.8 K/uL Red Blood Count 4.88 4.2-5.4 M/uL Hemoglobin 12.4 12.0-16.0 g/dL Hematocrit 37.8 37-47 % Mean Corpuscular Volume 77.5 80-100 fL Mean Corpuscular Hemoglobin 25.4 25-34 pg Mean Corpuscular Hemoglobin Concent 32.8 32-36 g/dl Platelet Count 289 130-400 K/uL Mean Platelet Volume 9.5 7.4-10.4 fL Neutrophils (%) (Auto) 77.8 % Lymphocytes (%) (Auto) 13.3 % Monocytes (%) (Auto) 7.2 % Eosinophils (%) (Auto) 1.1 % Basophils (%) (Auto) 0.2 % Neutrophils # (Auto) 11.11 1.4-6.5 K/uL Lymphocytes # (Auto) 1.89 1.2-3.4 K/uL Monocytes # (Auto) 1.02 0.11-0.59 K/uL Eosinophils # (Auto) 0.15 0-0.5 K/uL Basophils # (Auto) 0.03 0-0.2 K/uL RDW Standard Deviation 42.9 36.4-46.3 fL RDW Coefficient of Variation 15.3 11.5-14.5 % Immature Granulocyte % (Auto) 0.4 % Immature Granulocyte # (Auto) 0.06 0.00-0.02 K/uL Prothrombin Time 10.6 9.0-12.0 SECONDS Prothromb Time International Ratio 1.0 0.9-1.1 Activated Partial Thromboplast Time 28.5 21.0-31.0 SECONDS Partial Thromboplastin Ratio 1.1 Sodium Level 135 136-145 mmol/L Potassium Level 3.6 3.5-5.1 mmol/L Chloride Level 107 98-107 mmol/L Carbon Dioxide Level 16 21-32 mmol/L Anion Gap 12.0 3-11 mmol/L Blood Urea Nitrogen 61 7-18 mg/dl Creatinine 2.50 0.60-1.20 mg/dl Estimated GFR () 22.9 Estimated GFR (Non- 19.8 BUN/Creatinine Ratio 24.3 10-20 Random Glucose 247 70-99 mg/dl Estimated Average Glucose 226 mg/dl Hemoglobin A1c 9.5 4.5-5.6 % Calcium Level 7.9 8.5-10.1 mg/dl Magnesium Level 1.5 2.1 1.8-2.4 mg/dl Total Bilirubin 0.2 0.2-1 mg/dl Direct Bilirubin < 0.1 0-0.2 mg/dl Aspartate Amino Transf (AST/SGOT) 30 15-37 U/L Alanine Aminotransferase (ALT/SGPT) 22 12-78 U/L Alkaline Phosphatase 126 45-117 U/L Total Protein 8.0 6.4-8.2 gm/dl Albumin 2.9 3.4-5.0 gm/dl Lipase 538 379 73-393 U/L Thyroid Stimulating Hormone (TSH) 0.981 0.300-4.500 uIu/ml Bedside Glucose 228 355 70-90 mg/dl Test 12/10/16 08:13 12/10/16 11:33 12/10/16 13:42 12/10/16 14:52 Range/Units White Blood Count 12.87 4.8-10.8 K/uL Red Blood Count 4.58 4.2-5.4 M/uL Hemoglobin 12.0 12.0-16.0 g/dL Hematocrit 35.9 37-47 % Mean Corpuscular Volume 78.4 80-100 fL Mean Corpuscular Hemoglobin 26.2 25-34 pg Mean Corpuscular Hemoglobin Concent 33.4 32-36 g/dl Platelet Count 240 130-400 K/uL Mean Platelet Volume 9.6 7.4-10.4 fL Neutrophils (%) (Auto) 91.4 % Lymphocytes (%) (Auto) 7.2 % Monocytes (%) (Auto) 0.9 % Eosinophils (%) (Auto) 0.1 % Basophils (%) (Auto) 0.0 % Neutrophils # (Auto) 11.77 1.4-6.5 K/uL Lymphocytes # (Auto) 0.93 1.2-3.4 K/uL Monocytes # (Auto) 0.11 0.11-0.59 K/uL Eosinophils # (Auto) 0.01 0-0.5 K/uL Basophils # (Auto) 0.00 0-0.2 K/uL RDW Standard Deviation 44.4 36.4-46.3 fL RDW Coefficient of Variation 15.4 11.5-14.5 % Immature Granulocyte % (Auto) 0.4 % Immature Granulocyte # (Auto) 0.05 0.00-0.02 K/uL Sodium Level 134 136-145 mmol/L Potassium Level 4.1 3.5-5.1 mmol/L Chloride Level 108 98-107 mmol/L Carbon Dioxide Level 14 21-32 mmol/L Anion Gap 12.0 3-11 mmol/L Blood Urea Nitrogen 59 7-18 mg/dl Creatinine 2.20 0.60-1.20 mg/dl Estimated GFR () 26.8 Estimated GFR (Non- 23.1 BUN/Creatinine Ratio 26.9 10-20 Random Glucose 411 70-99 mg/dl Calcium Level 8.0 8.5-10.1 mg/dl Beta-Hydroxybutyric Acid 2.61 0.2-2.81 mg/dL Bedside Glucose 450 426 389 70-90 mg/dl Test 12/10/16 17:05 12/10/16 18:28 12/10/16 19:26 12/10/16 19:39 Range/Units Bedside Glucose 242 272 260 70-90 mg/dl Test 12/10/16 20:41 Range/Units Bedside Glucose 266 70-90 mg/dl Microbiology Results 12/10/16 Shiga Toxin Test, Received Pending 12/10/16 Stool Culture, Received Pending 12/10/16 C.difficile Toxin B Gene (PCR) - Final, Complete No C. difficile toxin B gene detected 12/09/16 C.difficile Toxin B Gene (PCR) - Final, Complete No C. difficile toxin B gene detected
[2016-12-10] MEDS: OXYCODONE HCL IR 5 MG TAB (IMMEDIATE RELEASE) PO PRN (23:54)
[2016-12-11] VITALS: BP 122/77; PULSE 74; TEMP 36.5; O2SAT 94
[2016-12-11] MEDS ORDERED: INSULIN ASPART 100 UNITS/ML 3 ML PEN SC SCH
[2016-12-11 00:56] LABS: URINE APPEARANCE CLOUDY (CLEAR); URINE BILIRUBIN NEG (NEG); URINE COLOR YELLOW; URINE NITRITE NEG (NEG); UROBILINOGEN NEG (NEG); ZZUR CULT IF INDIC CLEAN CATCH YES
[2016-12-11 00:57] LABS: MANUAL MICROSCOPIC REQUIRED? NO; REVIEW REQ? YES
[2016-12-11 01:17] LABS: URINE PATH CASTS 0-3 GRANULAR CASTS /lpf (0)
[2016-12-11] MEDS: INSULIN REGULAR 250 UNITS in SODIUM CHLORIDE 0.9% 250ML 250 ML IV SCH ×6 (02:37→06:26)
[2016-12-11] MEDS ORDERED: METOPROLOL TARTRATE 1 MG/ML VIAL ONE (04:51)
[2016-12-11] MEDS ORDERED: NURSING VERBAL MED ORDER ONE ×2 (05:00→05:15)
[2016-12-11] MEDS ORDERED: METOPROLOL TARTRATE 1 MG/ML VIAL IV STA (05:00)
[2016-12-11] MEDS: ALPRAZOLAM 0.5 MG TAB PO SCH ×2 (05:44→14:02)
[2016-12-11 07:00] LABS: ALB/GLOB RATIO 0.6 (0.9-2); BUN/CREATININE RATIO 30.1 (10-20); CALCIUM 7.7 mg/dl (8.5-10.1); CREATININE 1.7 mg/dl (0.60-1.20); POTASSIUM 3.7 mmol/L (3.5-5.1)
[2016-12-11 07:43] VITALS: BP 103/65; PULSE 63; TEMP 36.4; O2SAT 99
[2016-12-11] MEDS ORDERED: INSULIN GLARGINE SOLOSTAR 100 UNITS/ML 3 ML PEN SC ONE (08:00)
[2016-12-11] MEDS: GABAPENTIN 100 MG CAP PO SCH ×3 (08:27→20:54)
[2016-12-11] MEDS: INSULIN ASPART 100 UNITS/ML 3 ML PEN SC SCH ×4 (08:36→21:01)
[2016-12-11] MEDS: HEPARIN SOD 5000 UNIT/0.5 ML CARP SQ SCH ×3 (08:37→23:19)
[2016-12-11] MEDS: SODIUM CHLORIDE 0.9% 1000ML 1,000 ML IV SCH (08:42)
[2016-12-11] MEDS ORDERED: ALPRAZOLAM 0.5 MG TAB PO PRN (09:00)
--- NOTE | 2016-12-11 09:33 | Pharmacy Progress Note ---
Glycemic Control: Progress Nt Date of Service Dec 11, 2016. Scope Glycemic Pharmacist consulted by Dr Stratton on 12/10/16 for glycemic control and to write orders per [facility] inpatient glycemic control protocol. Objective Accuchecks BSG (last 24hrs): Test 12/10/16 11:33 12/10/16 13:42 12/10/16 14:52 12/10/16 17:05 Bedside Glucose 450 mg/dl (70-90) 426 mg/dl (70-90) 389 mg/dl (70-90) 242 mg/dl (70-90) Test 12/10/16 18:28 12/10/16 19:39 12/10/16 20:41 12/10/16 21:41 Bedside Glucose 272 mg/dl (70-90) 260 mg/dl (70-90) 266 mg/dl (70-90) 219 mg/dl (70-90) Test 12/10/16 22:36 12/10/16 23:42 12/11/16 00:31 12/11/16 01:31 Bedside Glucose 201 mg/dl (70-90) 142 mg/dl (70-90) 150 mg/dl (70-90) 153 mg/dl (70-90) Test 12/11/16 02:30 12/11/16 03:28 12/11/16 04:27 12/11/16 05:38 Bedside Glucose 137 mg/dl (70-90) 122 mg/dl (70-90) 118 mg/dl (70-90) 124 mg/dl (70-90) Test 12/11/16 06:03 12/11/16 06:23 12/11/16 07:39 12/11/16 08:34 Random Glucose 118 mg/dl (70-99) Bedside Glucose 120 mg/dl (70-90) 112 mg/dl (70-90) 161 mg/dl (70-90) Laboratory Data (last 24hrs) Test 12/11/16 06:03 Anion Gap 10.0 mmol/L BUN/Creatinine Ratio 30.1 Blood Urea Nitrogen 51 mg/dl Creatinine 1.70 mg/dl Potassium Level 3.7 mmol/L Sodium Level 138 mmol/L HbA1c: Test 12/09/16 23:34 Hemoglobin A1c 9.5 % (4.5-5.6) H Recent Pertinent Medications Outpatient Anti-diabetic Regimen: * NONCOMPLIANT * Pt states she only takes insulin "when tongue is thick" * She is prescribed Lantus 60 u BID and Novolog 15 units with meals Risk Factors for Insulin Resistance: * Steroids * Recent Surgery * Diet Assessment & Plan ASSESSMENT: * 61 yo diabetic F admitted with N/V, abdominal pain, noted to have severe hyperglycemia on admission * Pt typically does not take insulin at home so at baseline she is very resistant * Yesterday she was so insulin resistant that with a large SQ dose plus IV she was only 432 mg/dL on recheck * Spoke with MD and it was decided to initiate insulin drip per protocol * To ensure a quick transition off of insulin drip I continued high dose Lantus and a tight carb ratio on stop of insulin drip * BSGs have trended down nicely to <140 mg/dL and drip has turned itself off this morning * Spoke with nurse Amaral- plan for today is to continue weight-based/stress of 2 basal/bolus regimen and make adjustments as necessary * Of note, her outpatient regimen can not be used in any way as she does not take insulin- need to start with wt based approach and manage her without using those numbers for reference * ADA & AACE recommend a goal blood sugar range 140-180 mg/dl for the majority of critically ill & non-critically ill patients. However, more stringent targets may be selected in individual cases. PLAN FOR INPATIENT GLYCEMIC CONTROL: * Insulin drip discontinued this morning * Lantus 20 units BID * Novolog ACHS * CF: 20 mg/dL/unit * CR: 1 unit per 7 grams CHO consumed * Please note that the plan above was derived based on current level of insulin resistance and hospital stress. These recommendations are appropriate for inpatient admission only. Plan of care upon discharge will need to be reassessed to avoid potential outpatient hypo/hyperglycemia. Thank you.
[2016-12-11] MEDS: OXYCODONE HCL IR 5 MG TAB (IMMEDIATE RELEASE) PO PRN ×2 (09:43→20:53)
--- NOTE | 2016-12-11 14:33 | Progress Note ---
Progress Note Date of Service Dec 11, 2016. Progress Note Chart reviewed, pt examined and interviewed. She has continued pain in abdomen. She is jana PO. Abd is mildly tender near ostomy. Ostomy is draining. A/P: Complicated fistulizing Crohn's Chronic peristomal phlegmon - Diet as tolerated. Cont prednisone as prescribed. Please adv diet as tolerated; she can be discharged once her pain is controlled and tolerating low res diet.
[2016-12-11 15:06] VITALS: BP 109/69; PULSE 63; TEMP 36.6; O2SAT 99
[2016-12-11 16:00] VITALS: O2SAT 99
--- NOTE | 2016-12-11 20:38 | Progress Note ---
Internal Med Progress Note Date of Service: Dec 11, 2016. Provider Documentation: SUBJECTIVE: tolerating diet OBJECTIVE: Vital Signs-as noted below Exam: General-morbidly obese , anxious Eyes-sclera non icteric Lungs-CTA Heart-regular S1/S2 Abdomen-multiple surgical scar present , tenderness on RLQ , colostomy present Extremities-+ 1-2 bilat lower ext edema Neuro-AAO x3, no focal deficit Lab data as noted below. ASSESSMENT & PLAN: CROHN'S COLITIS : presents with Flare of inflammatory bowel disease follows with [facility] on [facility] -questionable compliance appreciate input form GI team on slow taper with PO Prednisone Diet will be advanced to low fiber diet monitor clinically will need continued out pt follow up with GI HYPERGLYCEMIA /POORLY CONTROLLED DM TYPE 2 : BSG > 400 due to steroid , poor baseline glycemic control HB A1c > 9 appreciate input form Pharmacy for glycemic management required IV insulin gtt transitioned to Subq regimen /Lantus today CHRONIC PAIN SYNDROME : follows with Pain clinic pt wants her home regimen of Oxycodone 15 mg QID PRN To be resumed mentions Percocet is not effective for pain control PRN Percocet /IV Dilaudid D/yang ordered for Oxycodone PRN per home regimen ANXIETY DISORDER : on Xanax 1 mg PO TID prn at home resumed DVT PROPHYLAXIS High risk for DVT sub q heparin DISPOSITION will be discharged home as BSG improves , able to tolerated diet Medicine follow up with Dr Olivas GI follow up with Dr Bee Vital Signs: Date Time Temp Pulse Resp B/P (MAP) Pulse Ox O2 Delivery O2 Flow Rate FiO2 12/11/16 16:00 99 Room Air 12/11/16 15:06 36.6 63 18 109/69 (82) 99 Room Air 12/11/16 10:10 Room Air 12/11/16 07:43 36.4 63 16 103/65 (78) 99 Room Air 12/11/16 00:00 Room Air 12/11/16 00:00 36.5 74 18 122/77 (92) 94 Room Air Lab Results: Results Past 24 Hours Test 12/10/16 20:41 12/10/16 21:41 12/10/16 22:36 12/10/16 23:42 Range/Units Bedside Glucose 266 219 201 142 70-90 mg/dl Test 12/11/16 00:31 12/11/16 00:45 12/11/16 01:31 12/11/16 02:30 Range/Units Bedside Glucose 150 153 137 70-90 mg/dl Urine Color YELLOW Urine Appearance CLOUDY CLEAR Urine pH 6.0 4.5-7.5 Urine Specific [place] 1.010 1.000-1.030 Urine Protein TRACE NEG Urine Glucose (UA) NEG NEG Urine Ketones NEG NEG Urine Occult Blood 2+ NEG Urine Nitrite NEG NEG Urine Bilirubin NEG NEG Urine Urobilinogen NEG NEG Urine Leukocyte Esterase LARGE NEG Urine WBC (Auto) >30 0-5 /hpf Urine RBC (Auto) 0-4 0-4 /hpf Urine Hyaline Casts (Auto) 1-5 0-5 /lpf Urine Epithelial Cells (Auto) 10-20 0-5 /lpf Urine Bacteria (Auto) NEG NEG Urine Pathogenic Casts 0-3 GRANULAR CASTS 0 /lpf Urine Yeast (Auto) BUD W/ HYPHAE NONE PRSENT Test 12/11/16 03:28 12/11/16 04:27 12/11/16 05:38 12/11/16 06:03 Range/Units Bedside Glucose 122 118 124 70-90 mg/dl Sodium Level 138 136-145 mmol/L Potassium Level 3.7 3.5-5.1 mmol/L Chloride Level 111 98-107 mmol/L Carbon Dioxide Level 17 21-32 mmol/L Anion Gap 10.0 3-11 mmol/L Blood Urea Nitrogen 51 7-18 mg/dl Creatinine 1.70 0.60-1.20 mg/dl Est Creatinine Clear Calc Drug Dose 43.9 ml/min Estimated GFR () 36.6 Estimated GFR (Non- 31.5 BUN/Creatinine Ratio 30.1 10-20 Random Glucose 118 70-99 mg/dl Calcium Level 7.7 8.5-10.1 mg/dl Magnesium Level 2.0 1.8-2.4 mg/dl Total Bilirubin 0.2 0.2-1 mg/dl Aspartate Amino Transf (AST/SGOT) 13 15-37 U/L Alanine Aminotransferase (ALT/SGPT) 16 12-78 U/L Alkaline Phosphatase 103 45-117 U/L Total Protein 6.7 6.4-8.2 gm/dl Albumin 2.4 3.4-5.0 gm/dl Globulin 4.3 2.5-4.0 gm/dl Albumin/Globulin Ratio 0.6 0.9-2 Test 12/11/16 06:23 12/11/16 07:39 12/11/16 08:34 12/11/16 11:23 Range/Units Bedside Glucose 120 112 161 143 70-90 mg/dl Test 12/11/16 16:50 12/11/16 19:55 Range/Units Bedside Glucose 245 295 70-90 mg/dl Microbiology Results 12/11/16 Urine Culture, Received Pending
[2016-12-11] MEDS: ALPRAZOLAM 0.5 MG TAB PO PRN (20:53)
[2016-12-11] MEDS: INSULIN GLARGINE SOLOSTAR 100 UNITS/ML 3 ML PEN SC SCH (21:02)
[2016-12-11 23:27] VITALS: BP 116/68; PULSE 73; TEMP 36.5; O2SAT 96
[2016-12-12 07:31] VITALS: BP 119/58; PULSE 76; TEMP 36.3; O2SAT 95
[2016-12-12] MEDS: INSULIN ASPART 100 UNITS/ML 3 ML PEN SC SCH ×3 (08:51→17:26)
[2016-12-12] MEDS: HEPARIN SOD 5000 UNIT/0.5 ML CARP SQ SCH ×2 (08:52→16:48)
[2016-12-12] MEDS: INSULIN GLARGINE SOLOSTAR 100 UNITS/ML 3 ML PEN SC SCH (08:52)
[2016-12-12] MEDS: GABAPENTIN 100 MG CAP PO SCH ×2 (08:54→13:18)
[2016-12-12] MEDS: OXYCODONE HCL IR 5 MG TAB (IMMEDIATE RELEASE) PO PRN ×2 (08:55→16:45)
[2016-12-12] MEDS: ALPRAZOLAM 0.5 MG TAB PO PRN (14:34)
[2016-12-12 15:20] VITALS: BP 116/70; PULSE 60; TEMP 36.7; O2SAT 100
[2016-12-12] MEDS ORDERED: OXY/15 PO (17:45)
--- NOTE | 2016-12-12 17:46 | Discharge Instructions ---
Discharge Instructions Date of Service Dec 12, 2016. Admission Reason for Admission: ARF Discharge Discharge Diagnosis / Problem: CRHON'S COLITIS Discharge Goals Goal(s): Decrease discomfort, Improve disease control, Diagnostic testing, Therapeutic intervention Activity Recommendations Activity Limitations: as noted below . Instructions / Follow-Up Instructions / Follow-Up HOSPITAL FOLLOW UP WITH DR PEREIRA IN 1 WEEK , OFFICE WILL CALL WITH APPOINTMENT GI FOLLOW UP ON 12/29/2016 @ 11:[address] Jasmyne Bee, DO Gastroenterology, [facility] Diet Patient's current hospital diet: Low Fiber Diet, Diabetes Type 2 Diet Discharge Diet Recommended Diet: Diabetes Type 2 Diet, Low Fiber Diet Pending Studies Studies pending at discharge: no Laboratory Results Hemoglobin A1c Test 12/09/16 23:34 Range/Units Estimated Average Glucose 226 mg/dl Hemoglobin A1c 9.5 H 4.5-5.6 % Medical Emergencies . Who to Call and When: Medical Emergencies: If at any time you feel your situation is an emergency, please call 911 immediately. . Non-Emergent Contact Non-Emergency issues call your: Primary Care Provider . . "Provider Documentation" section prepared by Марина Stratton. . VTE Core Measure Inpt VTE Proph given/why not?: Enoxaparin (Lovenox)[facility] [place] Drug Monitoring Program Search Results: patient reviewed within database Drug Monitoring Findings: RECENT PRESCRIPTION FILLED DATE : 11/23/2016 ZOLPIDEM TARTRATE 10 MG TABLET # 30 [facility] 11/23/2016 ALPRAZOLAM 1 MG TABLET # 90 tab [facility] [place] 11/17/16 OXYCODONE HCL 15 MG TABLET # 130.0 tablets 10/28/2016 ALPRAZOLAM 1 MG TABLET # 90. tablets 10/28/2016 ZOLPIDEM TARTRATE 10 MG TABLET # 30 tablets 10/21/2016 OXYCODONE HCL 15 MG TABLET # 120 tablets
[2016-12-12] MEDS ORDERED: NVLGI/PEN SQ (17:51)
[2016-12-12] MEDS ORDERED: INSDGI SQ (17:51)
[2016-12-12] MEDS ORDERED: PRED10TA PO (17:51)
[2016-12-12 18:09] VITALS: BP 116/70; PULSE 60; TEMP 36.7; O2SAT 100
--- NOTE | 2016-12-12 20:29 | Discharge Summary ---
Discharge Summary Date of Service Dec 12, 2016. Discharge Summary Admission Date: Dec 09, 2016 at 23:25 Discharge Date: Dec 12, 2016 Discharge Disposition: Home Principal Diagnosis: CROHN'S COLITIS Procedures: CT ABDOMEN/PELVIS WITHOUT CONTRAST : MPRESSION: 1. Diffuse mild thickening seen throughout the small bowel. This is consistent with a nonspecific enteritis. 2. Improvement in the inflammatory changes within the right side of the abdomen. 3. Multiple fistulas between the bowel loops within the right side the abdomen remains unchanged. 4. No evidence for bowel obstruction. 5. Increase in size in the fat-containing lower midline incisional hernia. 6. Postoperative changes as described above. 7. Right-sided nephrolithiasis. No hydronephrosis. A cholelithiasis. Consultations: [facility] Medication Reconciliation New Medications: Prednisone Tab (Prednisone) 10 Mg Tab 10 MG PO UD, #100 TAB 40 MG DAILY X3 DAY 30 MG X 3 DAY 20 MG X 3 DAY 10 MG X3 DAY 5 MG X3 DAY Changed Medications: Insulin Aspart (Novolog Flexpen) 100 Units/Ml Inj 15 UNITS SQ TIDM, #5 PEN 3 Refills (Changed from: Refills: ; PER SLIDING SCALE) WITH ADITIONAL SLIDING SCALE Insulin Glargine (Lantus) 100 Unit/Ml Inj 60 UNITS SQ HS, #5 PEN 3 Refills (Changed from: 45 UNITS; 10; Refills: ) Oxycodone Hcl (Oxycodone Hcl) 15 Mg Tab 15 MG PO Q8 PRN for Pain, #8 TABS (Changed from: PRN UD; 130) Continued Medications: Adalimumab (Humira Pen) 40 Mg/0.8 Ml Kit 0.8 ML SC 2XWK Alprazolam (Xanax) 1 Mg Tab 1 MG PO TID, #90 Furosemide (Furosemide) 20 Mg Tab 20 MG PO DAILY PRN for WT GAIN, #30 Gabapentin (Neurontin) 400 Mg Cap 400 MG PO TID, CAP Ondansetron (Ondansetron HCl) 4 Mg Tab 1 TAB PO Q8 PRN for Nausea, #40 Zolpidem Tartrate (Zolpidem Tartrate) 10 Mg Tab 10 MG PO HS PRN for Sleep, #30 Referrals At Discharge Follow up Referrals: [facility] Referral - 12/29/16 with Jasmyne Bee DO Admission Information HPI (per Admitting provider): DATE OF ADMISSION: 12/09/2016 PRIMARY CARE DOCTOR: Dr. Pereira CHIEF COMPLAINT: Worsening abdominal pain. HISTORY OF PRESENT ILLNESS: History obtained from the patient and records. Medical history is significant for IBD status post surgery on Humira, history of C. diff, HTN, DM2 insulin requiring, chronic pain and drug seeking behavior as per records, medication noncompliance as per records. Recent confinement was in September 2015 for SBO, improved w/o surgery. In the last few days, the patient has had worsening of her achy central abdominal pain, with nausea, emesis, increased ostomy output, nonbloody. No fever or chills. Poor appetite. No chest pain or shortness of breath. Patient was brought to the Emergency Room. MEDICAL HISTORY: As above. Last colonoscopy in August 2015 showed stricture at the ileocolonic anastomosis, colon normal. Recent [facility] outpatient visit in last September 2016. As per note, concerns about stricture, medication noncompliance. CT of abdomen and pelvis at [facility] done in November 2016 showed wall thickening with mesenteric edema, right lower quadrant colostomy, left ventral hernia with small bowel loops, gallstones, nonobstructing small stone lower pole right kidney. OPERATIONS: She has had bowel surgery and appendectomy. HOME MEDICATIONS: Include; Humira, Xanax, furosemide, Neurontin, NovoLog, Lantus, oxycodone, Zofran and zolpidem. ALLERGIES: No known drug allergies. FAMILY HISTORY: IBD. PERSONAL AND SOCIAL HISTORY: Nonsmoker. No chronic intake of alcoholic beverages. Disabled. Physical Exam (per Admitting): REVIEW OF SYSTEMS: As per HPI. all other ROS negative PHYSICAL EXAMINATION: VITAL SIGNS: Blood pressure was noted to be 140/66, pulse rate 92, RR 16, temperature 36.6 O2 sats 98 on room air. GENERAL: Noted to be wane, obese, in no respiratory distress. SKIN: Normal color. HEENT: [place] palpebral conjunctivae. Dry mucosa. NECK: Short neck. LUNGS: Decreased effort. HEART: Regular rate and rhythm. ABDOMEN: Ostomy noted. Some distention. Central abdominal tenderness. EXTREMITIES: Minimal LE edema. no tenderness NEUROLOGIC: No gross focality except for some lethargy Hospital Course CROHN'S COLITIS : symptom has resolved, no abdominal pain , no nausea vomiting, tolerating diet well presents with Flare of inflammatory bowel disease follows with [facility] on Hum[facility] -questionable compliance pt is counselled to utilize medications as instructed appreciate input form GI team on slow taper with PO Prednisone Diet advanced to low fiber diet Tolerating well discharged with slow taper with PO prednisone 40 mg PO Daily X 3days , 30 mg PO Daily X3 days , 20 mg po daily X3 days , 10 mg PO daily for X3 days , 5 mg PO daily for 3 days out pt follow up with GI as per scheduled HYPERGLYCEMIA /POORLY CONTROLLED DM TYPE 2 : improved after adjustment of insulin regimen , poor baseline glycemic control HB A1c > 9 worsened due to IV steroid due to Crohn's disease appreciate input form Pharmacy for glycemic management required IV insulin gtt transitioned to Subq regimen /Lantus pt is discharged home with increased dose of Lantus 60 U HS ( was on 45 U HS ) Fixed pre meal Novolog 15 U SC TID pt is counselled to follow diabetic diet regimen CHRONIC PAIN SYNDROME : follows with Pain clinic continued with home regimen of Oxycodone 15 mg QID PRN will follow with Pain clinic ANXIETY DISORDER : on Xanax 1 mg PO TID prn at home resumed DVT PROPHYLAXIS High risk for DVT sub q heparin DISPOSITION Discharge home today Medicine follow up with Dr Pereira GI follow up with Dr Bee Total time spent on discharge = 35 mins This includes examination of the patient, discharge planning, medication reconciliation, and communication with other providers. Discharge Instructions DI: Medical v4 Discharge Instructions Date of Service Dec 12, 2016. Admission Reason for Admission: ARF Discharge Discharge Diagnosis / Problem: CROHN'S COLITIS Discharge Goals Goal(s): Decrease discomfort, Improve disease control, Diagnostic testing, Therapeutic intervention Activity Recommendations Activity Limitations: as noted below . Instructions / Follow-Up Instructions / Follow-Up HOSPITAL FOLLOW UP WITH DR PEREIRA IN 1 WEEK , OFFICE WILL CALL WITH APPOINTMENT GI FOLLOW UP ON 12/29/2016 @ 11:[address] Jasmyne Bee, DO Gastroenterology, [facility] Diet Patient's current hospital diet: Low Fiber Diet, Diabetes Type 2 Diet Discharge Diet Recommended Diet: Diabetes Type 2 Diet, Low Fiber Diet Pending Studies Studies pending at discharge: no Laboratory Results Hemoglobin A1c Test 12/09/16 23:34 Range/Units Estimated Average Glucose 226 mg/dl Hemoglobin A1c 9.5 H 4.5-5.6 % Medical Emergencies . Who to Call and When: Medical Emergencies: If at any time you feel your situation is an emergency, please call 911 immediately. . Non-Emergent Contact Non-Emergency issues call your: Primary Care Provider . . "Provider Documentation" section prepared by Марина Stratton. . VTE Core Measure Inpt VTE Proph given/why not?: Enoxaparin (Lovenox)[facility] Drug Monitoring Program Search Results: patient reviewed within database Drug Monitoring Findings: RECENT PRESCRIPTION FILLED DATE : 11/23/2016 ZOLPIDEM TARTRATE 10 MG TABLET # 30 [facility] [place] 11/23/2016 ALPRAZOLAM 1 MG TABLET # 90 tab [facility] [place] 11/17/16 OXYCODONE HCL 15 MG TABLET # 130.0 tablets 10/28/2016 ALPRAZOLAM 1 MG TABLET # 90. tablets 10/28/2016 ZOLPIDEM TARTRATE 10 MG TABLET # 30 tablets 10/21/2016 OXYCODONE HCL 15 MG TABLET # 120 tablets Additional Copies To Jasmyne Bee, Fabian Zee M.D.
== END 2016-12-12 18:39 | disposition home or self-care (01) | DRG 386 ==
LOC: C.EDB 20:18 → C.MED 23:25 → ENRESERV 23:45 → C.MED 12-12 16:05
PROVIDERS: ADMIT Hospitalist; ATTEND Hospitalist
DX: K50.90 Crohn's disease, unspecified, without complications (principal); N17.9 Acute kidney failure, unspecified; I10 Essential (primary) hypertension; E11.65 Type 2 diabetes mellitus with hyperglycemia; Z79.4 Long term (current) use of insulin; E66.01 Morbid (severe) obesity due to excess calories; F41.9 Anxiety disorder, unspecified; G89.4 Chronic pain syndrome; Z68.36 Body mass index [BMI] 36.0-36.9, adult; Z91.14 Patient's other noncompliance with medication regimen; Z72.89 Other problems related to lifestyle; Z93.3 Colostomy status; Z79.899 Other long term (current) drug therapy; Z80.9 Family history of malignant neoplasm, unspecified; Z82.49 Family history of ischemic heart disease and other diseases of the circulatory system

== ENCOUNTER 2020-05-14 15:02 | Inpatient (IN) ==
[2020-05-14] MEDS ORDERED: SODIUM CHLORIDE 0.9% 1000ML 1,000 ML IV SCH (15:45)
--- NOTE | 2020-05-14 15:57 | Emergency Department Note ---
Impression & Plan Cellulitis of left foot, DM2 (diabetes mellitus, type 2), Generalized abdominal pain, Ileostomy in place, Pneumonia ED Provider Note INFORMANT: [Patient] ED PROVIDER(S): Blake Mccracken MD CHIEF COMPLAINT: Left foot pain and swelling. PLAN: Disposition: Admitted Condition: [Good] MEDICAL DECISION MAKING: Patient with DM and cellulitis on exam. XR neg for osteo. Imaging of abdomen and pelvis was negative for intra-abdominal acute pathology but did reveal a pneumonia. The labs were concerning mainly for ARF and anemia. Patient was hydrated. She noted a vomiting illness last week. This likely caused some dehydration. IV antibiotics and analgesia was administered. Admission to the hospital is necessary. Triage Nursing notes reviewed and agree them. [Prior medical records reviewed] . Pt previously had normal renal function. Vital Signs: reviewed and remarkable for [no significant abnormalities] Differential diagnosis: Cellulitis, abscess, MRSA infection, DVT, arterial insufficiency, osteomyelitis, necrotizing fasciitis, dermatitis, drug eruption, allergic reaction, as well as other pathologies. Diagnostics interpreted by me: ECG: Rate: 80 Rhythm: SR Holstein:LAD QRS: normal ST segements:no elevation, TWI inf Other:PVCs Imaging studies: XR of the foot neg for osteo or fracture CT abd/pelvis as above. Consultation(s): Dr. Garg, [facility] Hospitalist HPI: The patient is a 65 year old female who presents to the Emergency Room with complaints of left foot pain. This started 5 days ago and is worsening. The patient also notes the following associated symptoms, left foot swelling and redness, generalized abdominal pain for a month. Patient also notes that her toes were looking purple this morning. The patient has been prescribed keflex 3 days ago for relieving factors. Current pain is rated as 6/10. Patient states she was on Cipro and Flagyl for her abdomen issues. She was told to stop the Flagyl and was started on Keflex. Patient has history of ileostomy as well as colitis. She has a history of colectomy. She is being followed for her abdominal issues by GI at [facility]. Patient is having difficulty walking on the left leg due to the discomfort and swelling. She was instructed to come to the ER by her final inspector movement assembly, Dr. Bee.she has had normal ileostomy output. Pt denies LOC, headache, fevers, chills, diaphoresis, visual changes, neck pain, chest pain, breathing difficulties, nausea, vomiting, back pain, melena, hematochezia, urinary symptoms, numbness, weakness, lymphadenopathy, rash, or other complaints. ROS: See above HPI for pertinent positives & negatives. A total of [10] systems reviewed and were otherwise negative. PAST MEDICAL HISTORY:[See Below] , IBD, diabetes PAST SURGICAL HISTORY:[See Below] FAMILY HISTORY:[See Below] SOCIAL HISTORY:[See Below], non-smoker HOME MEDICATIONS:[See Below] ALLERGIES:[See Below] VITALS:[See Below] PHYSICAL EXAMINATION: GENERAL: Awake, alert, uncomfortable-appearing, in no distress HENT: Normocephalic, atraumatic. Oropharynx unremarkable. EYES: Normal conjunctiva. Sclera non-icteric. NECK: Inspection normal. Non-tender. Supple. No nuchal rigidity. FROM. No m asses. RESPIRATORY: Clear to auscultation. No wheezes. No rales. Normal respiratory effort. CARDIAC: Normal rate. Normal rhythm. No murmurs. No rubs. Extremities warm and well perfused. Pulses equal. No JVD. GI: Soft, mildly-distended. Diffuse tenderness to palpation. No rebound or guarding. No masses. Ileostomy present in the left lower quadrant. RECTAL: Deferred. MUSCULOSKELETAL: Atraumatic. Chest examination reveals no tenderness. The back is symmetrical on inspection without obvious abnormality. There is no CVA tenderness to palpation. No joint edema. LOWER EXTREMITIES: Calves are equal size bilaterally and non-tender. There is erythematous discoloration to the lateral aspect of the left foot that extends up to the midshin on the lateral side. There is mild edema on the left compared to the right. No significant difference in temperature. NEURO: Normal sensorium. No sensory or motor deficits noted. SKIN: No rash or jaundice noted. Blake Mccracken MD Past Med/Surg History Medical History (Updated 05/20/20 @ 22:20 by Blake Mccracken MD) Crohns disease Depression Diverticulosis DM2 (diabetes mellitus, type 2) H/O Clostridium difficile infection Hyperlipidemia Ileostomy in place Osteoarthritis Rheumatoid arthritis Surgical History delivery delivered H/O colonoscopy H/O exploratory laparotomy History of cataract surgery left History of partial colectomy Hx of colostomy S/P ORIF (open reduction internal fixation) fracture "humerus, left" Family History Other Diabetes Heart disease Social History Smoking Status: Never smoker Second Hand Exposure: No; Hx Alcohol Use: No Hx Substance Use: Yes Last Used Substance: Unknown Preferred Language: French Communication Ability: Effective Credit Control Assistant Required: No Beliefs That Will Affect Care: None Current Living Situation: Alone Current Living Situation Comment: Lives at home alone, with Caregivers - 20 Hrs/Day Feels Safe at Home: Yes Assistive Devices: None Allergies Allergies Allergy/AdvReac Type Severity Reaction Status Date / Time tramadol AdvReac Intermediate Nausea Verified 05/14/20 19:50 Home Meds Home Medications Medication Instructions Recorded Confirmed acetaminophen [Tylenol Extra 500 mg PO Q4H PRN MDD 3000 MG 01/18/19 05/14/20 Strength] APAP/24 HOURS insulin aspart U-100 [Novolog 5 unit SUBCUT AC 02/22/19 05/14/20 Flexpen U-100 Insulin] nystatin [Nyamyc] 1 applic TOPICAL DIRECTED 02/22/19 05/14/20 ondansetron 4 mg PO Q8H PRN 02/22/19 05/14/20 Humira Pen 40 mg SUBCUT UD 05/14/20 05/14/20 duloxetine 60 mg PO DAILY 05/14/20 05/14/20 gabapentin [Neurontin] 300 mg PO BID 05/14/20 05/14/20 Previous Rx's Medication Instructions Recorded Levemir FlexTouch U-100 Insuln 40 unit SUBCUT HS #1 ml 05/18/20 ergocalciferol (vitamin D2) 1,250 mcg PO .weekly #4 cap 05/18/20 famotidine 20 mg PO QAM #30 tab 05/18/20 fluconazole 100 mg PO QAM 7 Days #7 tab 05/18/20 folic acid 1 mg PO DAILY #30 tab 05/18/20 loperamide 2 mg PO AC #60 cap 05/18/20 oxycodone 5 mg PO Q4H PRN #20 tab 05/18/20 prednisone 5 mg PO DAILY 7 Days #7 tab 05/18/20 Results & Data (ED) Vital Signs Vital Signs - 24 hr 05/14/20 15:11 Temperature 36.6 C Temperature Source Oral Pulse Rate 85 Respiratory Rate 20 Respiratory Effort / Characteristics Non-Labored Respiratory Depth Normal Blood Pressure 152/83 H Blood Pressure Mean 106 Pulse Oximetry 100 Oxygen Delivery Method Room Air Sepsis Recent Fever Within 48 Hours No Sepsis New/Unexplained Change in Mental Status No Sepsis Action Taken by Nursing No Action Required Laboratory Data Result diagrams: 05/18/20 05:38 05/18/20 05:38 Lab Results 05/14/20 05/14/20 05/14/20 Range/Units 16:03 16:03 16:03 WBC 11.94 H (4.8-10.8) K/uL RBC 4.22 (4.2-5.4) M/uL Hgb 11.9 L (12.0-16.0) g/dL Hct 36.3 L (37-47) % MCV 86.0 (80-100) fL MCH 28.2 (25-34) pg MCHC 32.8 (32-36) g/dL RDW Std Deviation 45.9 (36.4-46.3) fL RDW Coeff of Velvet 14.7 H (11.5-14.5) % Plt Count 366 (130-400) K/uL MPV 9.9 (7.4-10.4) fL Immature Gran % (Auto) 1.1 % Neut % (Auto) 73.6 % Lymph % (Auto) 15.7 % [place] % (Auto) 7.0 % Eos % (Auto) 2.2 % Baso % (Auto) 0.4 % Neut # (Auto) 8.78 H (1.4-6.5) K/uL Lymph # (Auto) 1.88 (1.2-3.4) K/uL [place] # (Auto) 0.84 H (0.11-0.59) K/uL Eos # (Auto) 0.26 (0-0.5) K/uL Baso # (Auto) 0.05 (0-0.2) K/uL Immature Gran # (Auto) 0.13 H (0.00-0.02) K/uL ESR 78 H (0-21) mm/hr Sodium 134 L (136-145) mmol/L Potassium 3.6 (3.5-5.1) mmol/L Chloride 104 (98-107) mmol/L Carbon Dioxide 21 (21-32) mmol/L Anion Gap 10.0 (3-11) BUN 78 H (7-18) mg/dl Creatinine 4.08 H (0.6-1.2) mg/dl Est Cr Clr Drug Dosing 17.1 ml/min Est GFR ( Amer) 12.3 Est GFR (Non-Af Amer) 10.6 BUN/Creatinine Ratio 19.2 (10-20) Glucose 215 H (70-99) mg/dl Calcium 9.3 (8.5-10.1) mg/dl Phosphorus 3.8 (2.5-4.9) mg/dl Magnesium 1.6 L (1.8-2.4) mg/dl Total Bilirubin 0.2 (0.2-1) mg/dl AST 19 (15-37) U/L ALT 14 (12-78) U/L Alkaline Phosphatase 104 (45-117) U/L C-Reactive Protein 3.34 H (0-0.29) mg/dl Total Protein 8.7 H (6.4-8.2) gm/dl Albumin 3.0 L (3.4-5.0) gm/dl Globulin 5.7 H (2.5-4.0) gm/dl Albumin/Globulin Ratio 0.5 L (0.9-2) TSH 0.737 (0.300-4.500) uIu/ml COVID-19 Eval Order COVID-19 PCR (Negative) 05/14/20 05/14/20 Range/Units 19:45 19:45 WBC (4.8-10.8) K/uL RBC (4.2-5.4) M/uL Hgb (12.0-16.0) g/dL Hct (37-47) % MCV (80-100) fL MCH (25-34) pg MCHC (32-36) g/dL RDW Std Deviation (36.4-46.3) fL RDW Coeff of Velvet (11.5-14.5) % Plt Count (130-400) K/uL MPV (7.4-10.4) fL Immature Gran % (Auto) % Neut % (Auto) % Lymph % (Auto) % [place] % (Auto) % Eos % (Auto) % Baso % (Auto) % Neut # (Auto) (1.4-6.5) K/uL Lymph # (Auto) (1.2-3.4) K/uL [place] # (Auto) (0.11-0.59) K/uL Eos # (Auto) (0-0.5) K/uL Baso # (Auto) (0-0.2) K/uL Immature Gran # (Auto) (0.00-0.02) K/uL ESR (0-21) mm/hr Sodium (136-145) mmol/L Potassium (3.5-5.1) mmol/L Chloride (98-107) mmol/L Carbon Dioxide (21-32) mmol/L Anion Gap (3-11) BUN (7-18) mg/dl Creatinine (0.6-1.2) mg/dl Est Cr Clr Drug Dosing ml/min Est GFR ( Amer) Est GFR (Non-Af Amer) BUN/Creatinine Ratio (10-20) Glucose (70-99) mg/dl Calcium (8.5-10.1) mg/dl Phosphorus (2.5-4.9) mg/dl Magnesium (1.8-2.4) mg/dl Total Bilirubin (0.2-1) mg/dl AST (15-37) U/L ALT (12-78) U/L Alkaline Phosphatase (45-117) U/L C-Reactive Protein (0-0.29) mg/dl Total Protein (6.4-8.2) gm/dl Albumin (3.4-5.0) gm/dl Globulin (2.5-4.0) gm/dl Albumin/Globulin Ratio (0.9-2) TSH (0.300-4.500) uIu/ml COVID-19 Eval Order Covid19 Done at [facility] COVID-19 PCR NEGATIVE (Negative) Administered Medications Discontinued Medications Acetaminophen (Acetaminophen 500 Mg Tab) 500 mg PO Q4H PRN PRN Reason: Pain Stop: 06/13/20 22:37 Last Admin: 05/15/20 14:03 Dose: 500 mg Documented by: [id number] Admin: 05/15/20 05:07 Dose: 500 mg Documented by: [id number] Admin: 05/14/20 23:51 Dose: 500 mg Documented by: [id number] Colestipol HCl (Colestipol Hcl 1 Gm Tab) 1 gm PO BID@1000,2200 [facility] Stop: 06/16/20 13:54 Last Admin: 05/17/20 14:19 Dose: Not Given Documented by: [id number] Cyanocobalamin (Cyanocobalamin 1000 Mcg/Ml Vial) 1,000 mcg IM DAILY [facility] Stop: 06/16/20 13:59 Last Admin: 05/18/20 09:07 Dose: 1,000 mcg Documented by: [id number] Admin: 05/17/20 14:40 Dose: 1,000 mcg Documented by: [id number] Duloxetine HCl (Duloxetine Hcl 60 Mg Cap) 60 mg PO DAILY [facility] Stop: 06/14/20 08:59 Last Admin: 05/18/20 07:55 Dose: 60 mg Documented by: [id number] Admin: 05/17/20 08:08 Dose: 60 mg Documented by: [id number] Admin: 05/16/20 08:17 Dose: 60 mg Documented by: [id number] Admin: 05/15/20 07:55 Dose: 60 mg Documented by: [id number] Ergocalciferol (Ergocalciferol 50,000 Units Cap) 50,000 units PO ONE ONE Stop: 05/16/20 09:13 Last Admin: 05/16/20 10:05 Dose: 50,000 units Documented by: [id number] Famotidine (Famotidine 20 Mg Tab) 20 mg PO QAM [facility] Stop: 06/15/20 09:44 Last Admin: 05/18/20 07:55 Dose: 20 mg Documented by: [id number] Admin: 05/17/20 08:08 Dose: 20 mg Documented by: [id number] Admin: 05/16/20 11:03 Dose: 20 mg Documented by: [id number] Fluconazole (Fluconazole 50 Mg Tab) 150 mg PO ONE ONE Stop: 05/14/20 23:01 Last Admin: 05/14/20 23:17 Dose: 150 mg Documented by: [id number] Fluconazole (Fluconazole 100 Mg Tab) 100 mg PO QAM [facility] Stop: 05/26/20 09:14 Last Admin: 05/18/20 07:55 Dose: 100 mg Documented by: [id number] Admin: 05/17/20 08:08 Dose: 100 mg Documented by: [id number] Admin: 05/16/20 11:03 Dose: 100 mg Documented by: [id number] Gabapentin (Gabapentin 100 Mg Cap) 200 mg PO BID [facility] Stop: 06/13/20 22:59 Last Admin: 05/18/20 07:56 Dose: 200 mg Documented by: [id number] Admin: 05/17/20 21:11 Dose: 200 mg Documented by: [id number] Admin: 05/17/20 08:08 Dose: 200 mg Documented by: [id number] Admin: 05/16/20 20:59 Dose: 200 mg Documented by: [id number] Admin: 05/16/20 08:17 Dose: 200 mg Documented by: [id number] Admin: 05/15/20 20:21 Dose: 200 mg Documented by: [id number] Admin: 05/15/20 07:55 Dose: 200 mg Documented by: [id number] Admin: 05/14/20 23:51 Dose: 200 mg Documented by: [id number] Heparin Sodium (Porcine) (Heparin Sod 5,000 Unit/0.5 Ml Vial) 5,000 units SQ Q8 [facility] Stop: 06/13/20 22:59 Last Admin: 05/18/20 13:52 Dose: Not Given Documented by: [id number] Admin: 05/18/20 05:31 Dose: 5,000 units Documented by: [id number] Admin: 05/17/20 21:14 Dose: 5,000 units Documented by: [id number] Admin: 05/17/20 14:22 Dose: 5,000 units Documented by: [id number] Admin: 05/17/20 05:08 Dose: 5,000 units Documented by: [id number] Admin: 05/16/20 21:00 Dose: 5,000 units Documented by: [id number] Cosigned by: [id number] Admin: 05/16/20 12:32 Dose: Not Given Documented by: [id number] Admin: 05/16/20 05:14 Dose: 5,000 units Documented by: [id number] Cosigned by: [id number] Admin: 05/15/20 20:24 Dose: 5,000 units Documented by: [id number] Cosigned by: [id number] Admin: 05/15/20 12:17 Dose: 5,000 units Documented by: [id number] Cosigned by: [id number] Admin: 05/15/20 05:07 Dose: 5,000 units Documented by: [id number] Cosigned by: [id number] Admin: 05/14/20 23:35 Dose: 5,000 units Documented by: [id number] Cosigned by: [id number] Hydromorphone HCl (Hydromorphone Inj 0.5 Mg/0.5 Ml Syr) 0.5 mg IV Q15M PRN PRN Reason: Pain Stop: 05/28/20 17:13 Last Admin: 05/14/20 19:15 Dose: 0.5 mg Documented by: [id number] Admin: 05/14/20 17:23 Dose: 0.5 mg Documented by: [id number] Sodium Chloride (Nss 1000ml) 1,000 mls @ 125 mls/hr IV .Q8H [facility] Stop: 05/14/20 23:44 Last Infusion: 05/14/20 19:24 Dose: 0 mls/hr Documented by: [id number] Admin: 05/14/20 16:22 Dose: 125 mls/hr Documented by: [id number] Sodium Chloride (Nss 1000ml) 500 mls @ 999 mls/hr IV .Q31M ONE Stop: 05/14/20 19:23 Last Infusion: 05/14/20 19:47 Dose: 0 mls/hr Documented by: [id number] Admin: 05/14/20 19:16 Dose: 999 mls/hr Documented by: [id number] Cefepime HCl (Maxipime) 2,000 mg in 20 mls @ 5 mls/min IV NOW STA; Protocol Stop: 05/14/20 18:56 Last Admin: 05/14/20 19:15 Dose: 5 mls/min Documented by: [id number] Vancomycin HCl 2,250 mg/ (Sodium Chloride) 545 mls @ 200 mls/hr IV NOW ONE Stop: 05/14/20 21:36 Last Infusion: 05/14/20 22:16 Dose: 0 mls/hr Documented by: [id number] Admin: 05/14/20 19:16 Dose: 200 mls/hr Documented by: [id number] Cefepime HCl 2,000 mg/ Syringe 20 mls @ 5 mls/min IV Q24H YULY; Protocol Stop: 05/22/20 17:59 Last Admin: 05/15/20 17:08 Dose: 5 mls/min Documented by: [id number] Sodium Chloride (Nss 1000ml) 1,000 mls @ 100 mls/hr IV .Q10H [facility] Stop: 05/15/20 18:37 Last Infusion: 05/15/20 18:39 Dose: 0 mls/hr Documented by: [id number] Admin: 05/15/20 07:54 Dose: 100 mls/hr Documented by: [id number] Infusion: 05/15/20 07:54 Dose: 100 mls/hr Documented by: [id number] Infusion: 05/15/20 05:07 Dose: 100 mls/hr Documented by: [id number] Infusion: 05/15/20 04:30 Dose: 0 mls/hr Documented by: [id number] Admin: 05/14/20 22:42 Dose: 100 mls/hr Documented by: [id number] Magnesium Sulfate/Dextrose (Magnesium Sulfate / D5w) 1 gm in 100 mls @ 50 mls/hr IV ONE ONE Stop: 05/15/20 00:59 Last Infusion: 05/15/20 01:17 Dose: 0 mls/hr Documented by: [id number] Admin: 05/14/20 23:17 Dose: 50 mls/hr Documented by: [id number] Vancomycin HCl 1,500 mg/ (Sodium Chloride) 530 mls @ 200 mls/hr IV TODAY@0900 ONE Stop: 05/15/20 11:38 Last Infusion: 05/15/20 10:53 Dose: 0 mls/hr Documented by: [id number] Admin: 05/15/20 07:54 Dose: 200 mls/hr Documented by: [id number] Sodium Bicarbonate 75 meq/ (Sodium Chloride) 1,075 mls @ 75 mls/hr IV .[id number] [facility] Stop: 05/17/20 11:54 Last Infusion: 05/17/20 15:32 Dose: 0 mls/hr Documented by: [id number] Admin: 05/16/20 23:52 Dose: 75 mls/hr Documented by: [id number] Infusion: 05/16/20 23:52 Dose: 75 mls/hr Documented by: [id number] Admin: 05/16/20 10:05 Dose: 75 mls/hr Documented by: [id number] Folic Acid 1 mg/ Syringe 10 mls @ 5 mls/min IV QAM [facility] Stop: 06/16/20 13:59 Last Admin: 05/18/20 07:56 Dose: 5 mls/min Documented by: [id number] Admin: 05/17/20 14:22 Dose: 5 mls/min Documented by: [id number] Insulin Aspart (Insulin Aspart 100 Units/Ml 3 Ml Pen) 0 units SC ACHS [facility] Stop: 06/13/20 22:59 Last Admin: 05/18/20 17:18 Dose: 10 units Documented by: [id number] Cosigned by: [id number] Admin: 05/18/20 12:11 Dose: 15 units Documented by: [id number] Cosigned by: [id number] Admin: 05/18/20 08:13 Dose: 6 units Documented by: [id number] Cosigned by: [id number] Admin: 05/17/20 20:33 Dose: Not Given Documented by: [id number] Admin: 05/17/20 17:02 Dose: 26 units Documented by: [id number] Cosigned by: [id number] Admin: 05/17/20 12:27 Dose: 17 units Documented by: [id number] Cosigned by: [id number] Admin: 05/17/20 08:55 Dose: 10 units Documented by: [id number] Cosigned by: [id number] Admin: 05/16/20 21:01 Dose: 8 units Documented by: [id number] Cosigned by: [id number] Admin: 05/16/20 17:12 Dose: 15 units Documented by: [id number] Cosigned by: [id number] Admin: 05/16/20 12:15 Dose: 15 units Documented by: [id number] Cosigned by: [id number] Admin: 05/16/20 08:17 Dose: 13 units Documented by: [id number] Cosigned by: [id number] Admin: 05/15/20 20:57 Dose: 13 units Documented by: [id number] Cosigned by: [id number] Admin: 05/15/20 17:07 Dose: 21 units Documented by: [id number] Cosigned by: [id number] Admin: 05/15/20 12:17 Dose: 13 units Documented by: [id number] Cosigned by: [id number] Admin: 05/15/20 07:58 Dose: 8 units Documented by: [id number] Cosigned by: [id number] Admin: 05/14/20 23:35 Dose: 11 units Documented by: [id number] Cosigned by: [id number] Insulin Detemir (Insulin Detemir Flexpen/Flex Touch 100 Units/Ml 3ml) 36 units SQ HS [facility] Stop: 06/13/20 22:59 Last Admin: 05/14/20 23:35 Dose: 36 units Documented by: [id number] Cosigned by: [id number] Insulin Detemir (Insulin Detemir Flexpen/Flex Touch 100 Units/Ml 3ml) 50 units SQ HS [facility] Stop: 06/14/20 20:59 Last Admin: 05/17/20 21:10 Dose: 50 units Documented by: [id number] Cosigned by: [id number] Admin: 05/16/20 21:02 Dose: 50 units Documented by: [id number] Cosigned by: [id number] Admin: 05/15/20 20:58 Dose: 50 units Documented by: [id number] Cosigned by: [id number] Loperamide HCl (Loperamide Hcl 2 Mg Cap) 2 mg PO TID [facility] Stop: 06/14/20 13:59 Last Admin: 05/16/20 20:59 Dose: 2 mg Documented by: [id number] Admin: 05/16/20 13:14 Dose: 2 mg Documented by: [id number] Admin: 05/16/20 08:20 Dose: 2 mg Documented by: [id number] Admin: 05/15/20 20:21 Dose: 2 mg Documented by: [id number] Admin: 05/15/20 14:01 Dose: 2 mg Documented by: [id number] Loperamide HCl (Loperamide Hcl 2 Mg Cap) 2 mg PO NOW STA Stop: 05/16/20 22:35 Last Admin: 05/17/20 00:02 Dose: 2 mg Documented by: [id number] Loperamide HCl (Loperamide Hcl 2 Mg Cap) 2 mg PO ACHS [facility] Stop: 06/16/20 07:29 Last Admin: 05/18/20 17:04 Dose: 2 mg Documented by: [id number] Admin: 05/18/20 12:11 Dose: 2 mg Documented by: [id number] Admin: 05/18/20 07:55 Dose: 2 mg Documented by: [id number] Admin: 05/17/20 21:15 Dose: 2 mg Documented by: [id number] Admin: 05/17/20 17:05 Dose: 2 mg Documented by: [id number] Admin: 05/17/20 12:27 Dose: 2 mg Documented by: [id number] Admin: 05/17/20 08:07 Dose: 2 mg Documented by: [id number] Nystatin (Nystatin Powder 15gm Btl) 1 appln EXT DAILY [facility] Stop: 06/14/20 08:59 Last Admin: 05/18/20 07:56 Dose: 1 appln Documented by: [id number] Admin: 05/17/20 08:08 Dose: 1 appln Documented by: [id number] Admin: 05/16/20 08:18 Dose: 1 appln Documented by: [id number] Admin: 05/15/20 07:55 Dose: 1 appln Documented by: [id number] Ondansetron HCl (Ondansetron Inj 2 Mg/Ml 2 Ml Vial) 4 mg IV NOW STA Stop: 05/14/20 17:15 Last Admin: 05/14/20 17:23 Dose: 4 mg Documented by: [id number] Ondansetron HCl (Ondansetron Inj 2 Mg/Ml 2 Ml Vial) 4 mg IV Q6H PRN PRN Reason: Nausea Stop: 06/13/20 22:37 Last Admin: 05/15/20 09:45 Dose: 4 mg Documented by: [id number] Oxycodone HCl (Oxycodone Hcl Ir 5 Mg Tab (Immediate Release)) 5 mg PO Q4H PRN PRN Reason: Pain Stop: 05/29/20 09:18 Last Admin: 05/18/20 17:04 Dose: 5 mg Documented by: [id number] Admin: 05/18/20 10:47 Dose: 5 mg Documented by: [id number] Admin: 05/18/20 05:39 Dose: 5 mg Documented by: [id number] Admin: 05/17/20 19:47 Dose: 5 mg Documented by: [id number] Admin: 05/17/20 14:40 Dose: 5 mg Documented by: [id number] Admin: 05/17/20 09:54 Dose: 5 mg Documented by: [id number] Admin: 05/17/20 05:13 Dose: 5 mg Documented by: [id number] Admin: 05/16/20 20:59 Dose: 5 mg Documented by: [id number] Admin: 05/16/20 15:08 Dose: 5 mg Documented by: [id number] Admin: 05/16/20 08:16 Dose: 5 mg Documented by: [id number] Admin: 05/16/20 01:06 Dose: 5 mg Documented by: [id number] Admin: 05/15/20 20:21 Dose: 5 mg Documented by: [id number] Admin: 05/15/20 16:10 Dose: 5 mg Documented by: [id number] Admin: 05/15/20 09:45 Dose: 5 mg Documented by: [id number] Prednisone (Prednisone 20 Mg Tab) 20 mg PO NOW STA Stop: 05/15/20 12:15 Last Admin: 05/15/20 12:30 Dose: 20 mg Documented by: [id number] Prednisone (Prednisone 5 Mg Tab) 15 mg PO NOW ONE Stop: 05/16/20 09:12 Last Admin: 05/16/20 10:05 Dose: 15 mg Documented by: [id number] Prednisone (Prednisone 10 Mg Tablet) [address] [facility] Stop: 06/16/20 08:59 Last Admin: 05/18/20 07:55 Dose: 10 mg Documented by: [id number] Admin: 05/17/20 08:07 Dose: 10 mg Documented by: [id number] Discharge Plan Visit Data Chief Complaint: Swelling/Edema to Extremity Stated Complaint: FEET SWELLING ED Provider: Blake Mccracken Discharge Problem: Cellulitis of left foot, DM2 (diabetes mellitus, type 2), Generalized abdominal pain, Ileostomy in place, Pneumonia Patient Disposition: Admitted As Inpatient Discharge Instructions Interventions: ED Discharge Assessment Last Done: 05/14/20 22:29
[2020-05-14 16:25] LABS: Basophils # (auto) 0.05 K/uL (0-0.2); Basophils % (auto) 0.4 %; Eosinophils # (auto) 0.26 K/uL (0-0.5); Eosinophils % (auto) 2.2 %; Hematocrit (blood only) 36.3 % (37-47); Hemoglobin 11.9 g/dL (12.0-16.0); Immature Granulocytes # (auto) 0.13 K/uL (0.00-0.02); Immature Granulocytes % (auto) 1.1 %; Lymphocytes # (auto) 1.88 K/uL (1.2-3.4); Lymphocytes % (auto) 15.7 %; Mean Corpuscular Hemoglobin 28.2 pg (25-34); Mean Corpuscular Hgb Conc 32.8 g/dL (32-36); Mean Platelet Volume 9.9 fL (7.4-10.4); Monocytes # (auto) 0.84 K/uL (0.11-0.59); Neutrophils # (auto) 8.78 K/uL (1.4-6.5); Neutrophils % (auto) 73.6 %; Platelet Count 366 K/uL (130-400); RDW Coefficient of Variation 14.7 % (11.5-14.5); RDW Standard Deviation 45.9 fL (36.4-46.3); Red Blood Count 4.22 M/uL (4.2-5.4); White Blood Count 11.94 K/uL (4.8-10.8)
[2020-05-14 16:42] LABS: BUN Creatinine Ratio 19.2 (10-20); Calcium 9.3 mg/dl (8.5-10.1); Creatinine Clr Calc Pharmacy 17.1 ml/min; Est GFR (African American) 12.3; Est GFR (Non-African American) 10.6; Magnesium 1.6 mg/dl (1.8-2.4); Potassium 3.6 mmol/L (3.5-5.1)
[2020-05-14 16:53] LABS: Albumin Globulin Ratio 0.5 (0.9-2); Bilirubin,Total 0.2 mg/dl (0.2-1); Globulin 5.7 gm/dl (2.5-4.0); Thyroid Stimulating Hormone 0.737 uIu/ml (0.300-4.500); Total Protein 8.7 gm/dl (6.4-8.2)
--- NOTE | 2020-05-14 16:54 | CT Scan Report ---
CT SCAN OF THE ABDOMEN AND PELVIS WITHOUT IV CONTRAST CLINICAL HISTORY: Generalized abdominal pain. COMPARISON STUDY: Abdominal CT dated 02/22/2019. TECHNIQUE: CT scan of the abdomen and pelvis is performed from the lung bases to the proximal femora. Images are reviewed in the axial, sagittal, and coronal planes. IV contrast was not administered for this examination. Note that the examination is suboptimal without IV contrast. A dose lowering techn ique was utilized adhering to the principles of ALARA. CT DOSE: 1570.29 mGy.cm FINDINGS: Lung bases: The heart is normal in size and without pericardial effusion. The coronary arteries are d ensely calcified. Patchy consolidation is identified in the right middle lobe. No pleural effusion is identified. There is a small hiatal hernia. Liver: The unenhanced liver is normal in size, contour, and attenuation. There is no intrahepatic janneth iary ductal dilatation. There is scattered hepatic granulomas. Gallbladder: There are calcified gallstones with no CT evidence of acute cholecystitis. Spleen: Normal in size and attenuation. Pancreas: The unenhanced pancreas is moderately atrophic and grossly unremarkable. Adrenal glands: Unremarkable. Kidneys: The unenhanced kidneys demonstrate cortical atrophy and are without hydronephrosis. There ar e numerous bilateral nonobstructing renal calculi. No ureteral stone is seen. There is no evidence of contour deforming renal mass lesion. Abdominal vasculature: The abdominal aorta is normal in course and caliber noting mild to moderate at herosclerotic calcification. Bowel: There is postoperative change from subtotal colectomy with left lower quadrant ileostomy. A re ctal pouch is noted in the pelvis. There is no bowel obstruction. Peritoneum: There is no intraperitoneal free air or abdominal ascites. A midline surgical scar is see n in the pelvis. Lymphadenopathy: None. Pelvic viscera: The bladder, uterus, and adnexa are normal as visualized. Skeletal structures: The skeletal structures are osteopenic. There is advanced lumbosacral spondylosi s and scoliosis. A large hemangioma is seen in the body of L5. No lytic or blastic lesions are seen. A mild wedge compression deformity of T12 is unchanged. Posttraumatic deformity and postoperative tarsha nge is noted in the left proximal femur. IMPRESSION: 1. Patchy airspace consolidation is seen in the right middle lobe. Correlate clinically for evidence of an infectious/inflammatory pneumonitis. 2. 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 No bowel obstruction is seen. 3. Bilateral nephrolithiasis. 4. Cholelithiasis. 5. Additional chronic changes as above. ACT 112: Negative or not required by law. Electronically signed by: Spenser Sauer M.D. 05/14/2020 4:53 PM
[2020-05-14] MEDS ORDERED: ONDANSETRON INJ 2 MG/ML 2 ML VIAL IV STA (17:14)
[2020-05-14] MEDS: HYDROmorphone INJ 0.5 MG/0.5 ML SYR IV PRN ×2 (17:23→19:15)
--- NOTE | 2020-05-14 17:50 | XRay Report ---
XR foot LT min 3V routine CLINICAL HISTORY: left lateral foot cellulitis, DM. ? Osteomyelitis COMPARISON STUDY: None. FINDINGS: Lateral soft tissue swelling within the left foot. No underlying bony destruction to sugges t osteomyelitis. No fracture or dislocation. The Lisfranc joint is intact. Hpct-[id number]-[id number] degenerat letitia changes seen throughout the left foot. Vascular calcifications are noted. The bones are osteopeni c. Plantar and posterior calcaneal spurs are present. There is also dorsal soft tissue swelling seen throughout the foot. IMPRESSION: Soft tissue swelling within the left foot. No underlying bony destruction to suggest ost eomyelitis. ACT 112: Negative or not required by law. Electronically signed by: Angelo Michele M.D. 05/14/2020 5:48 PM
[2020-05-14] MEDS ORDERED: VANCOMYCIN HCL 2,250 MG in SODIUM CHLORIDE 0.9% 500 ML IV ONE (18:53)
[2020-05-14] MEDS ORDERED: VANCOMYCIN CONSULT ACTIVE PRN ×2 (18:53→22:38)
[2020-05-14] MEDS ORDERED: CEFEPIME 2,000 MG/20 ML VIAL IV STA (18:53)
[2020-05-14] MEDS ORDERED: SODIUM CHLORIDE 0.9% 1000ML 500 ML IV ONE (18:53)
--- NOTE | 2020-05-14 18:58 | Ultrasound Report ---
US arterial duplex LE LT CLINICAL HISTORY: eval for arterial insuff.. Left lower extremity pain. COMPARISON STUDY: None. FINDINGS: The right ankle-brachial index measured with the dorsalis pedis artery was 1.3. The left an kle-brachial indices measured between 1.3 and 1.5. This could be due to the diffusely calcified vesse ls. No elevated velocities to suggest stenosis. No areas of arterial occlusion. Normal biphasic wavef orms seen within the left common femoral and proximal left superficial femoral artery. There are mono phasic waveforms seen throughout the remaining left lower extremity arterial system. IMPRESSION: Monophasic waveforms seen throughout the majority of the left lower extremity arterial s ystem likely due to the diffusely calcified plaque. No hemodynamically significant stenosis or occlus ion identified. ACT 112: Negative or not required by law. Electronically signed by: Angelo Michele M.D. 05/14/2020 6:56 PM
--- NOTE | 2020-05-14 20:23 | History & Physical Report ---
Date of Service May 14, 2020 Assessment & Plan (1) Cellulitis of left foot: 65yo female with warmth, redness, tenderness and mild swelling of LLE. No evidence of deeper infection. US without arterial stenosis or insufficiency, Xray without evidence of osteomyelitis -Admit to medical -Check ESR and CRP - ?acute osteomyelitis. Consider MRI -Check venous US for possible DVT -Follow cultures -Vancomycin and Cefepime Present on Admission?: Yes (2) ARF (acute renal failure): Patient with elevated BUN and Cr to 78 ant 4.08, respectively. She reports period of increased ostomy output as well as nausea, vomiting and poor oral intake. ?dehydration, pre-renal azotemia as cause for elevated BUN and Cr -IVF NSS at 100mL/hr x 2 liters -Monitor renal function -Check PO4 -Avoid nephrotoxic agents -Renal dosing where needed Present on Admission?: Yes (3) DM2 (diabetes mellitus, type 2): Patient with elevated blood sugar of 215 today -Continue Levemir 36u qHS -ISS -Goal blood sugar 100 - 140 -Decrease Gabapentin to 200mg po BID Present on Admission?: Yes (4) Depression: Chronic. Well controlled -Continue Cymbalta 60mg po daily Present on Admission?: Yes (5) Crohns disease: Patient reports recent diarrhea and abdominal pain. Was on Cipro and Flagyl for possible colitis -Check c. diff -Check stool culture -No suggestion of flare on CT imaging -ESR and CRP as above -Patient on Humira outpatient Present on Admission?: Yes (6) Pneumonia: Incidentally discovered on CT imaging of the abdomen. Patient denies SOB and has only a mild cough. Covid-19 NEGATIVE. -Follow cultures -Vanc and Cefepime for skin/soft tissue infection as above -Tylenol PRN Patient reports yeast infection - Fluconazole 150mg po x 1 F/E/N - NSS at 100mL/hr x 2, Mg repletion, PO as tolerated Ppx - Heparin Code - Full Dispo - Admit to medical Present on Admission?: Yes History of Present Illness Chief Complaint: LLE pain, cellulitis, PNA Primary Care Provider: Ji Munoz Norma Remy is a 65yo C female with history of DM, HLP. She developed pain and swelling in her left foot 5 days ago and was subsequently diagnosed with cellulitis. She was started on Keflex 3 days ago and has been taking it as prescribed with no improvement. She reports her toes were purple and discolored this AM which prompted her to come to the ER. Patient with ileostomy and reports increased liquid output over the last 3-4 days. Dizziness with ambulation and pain in left foot with weight bearing. She denies fevers but has had some chills. Denies CP/SOB. Has had a slight, non-productive cough. Had some nausea and vomiting last week which has resolved. +UOP but decreased from baseline. No additional complaints at this time. No Covid-19 exposure. ER Course: Vancomycin, Cefepime, NSS, Dilaudid Allergies Allergy/AdvReac Type Severity Reaction Status Date / Time tramadol AdvReac Intermediate Nausea Verified 05/14/20 19:50 Home Medications Home Medications Medication Instructions Recorded Confirmed Type acetaminophen [Tylenol Extra 500 mg PO Q4H PRN MDD 3000 MG 01/18/19 05/14/20 History Strength] APAP/24 HOURS insulin aspart U-100 [Novolog 5 unit SUBCUT AC 02/22/19 05/14/20 History Flexpen U-100 Insulin] insulin detemir U-100 [Levemir 36 unit SUBCUT HS 02/22/19 05/14/20 History FlexTouch U-100 Insuln] nystatin [Nyamyc] 1 applic TOPICAL DIRECTED 02/22/19 05/14/20 History ondansetron 4 mg PO Q8H PRN 02/22/19 05/14/20 History adalimumab [Humira Pen] 40 mg SUBCUT UD 05/14/20 05/14/20 History cephalexin [Keflex] 500 mg PO QID 05/14/20 05/14/20 History duloxetine 60 mg PO DAILY 05/14/20 05/14/20 History gabapentin [Neurontin] 300 mg PO BID 05/14/20 05/14/20 History Past Med/Surg History Medical History (Updated 05/14/20 @ 22:13 by Kristin Gagr DO) Crohns disease Depression Diverticulosis DM2 (diabetes mellitus, type 2) H/O Clostridium difficile infection Hyperlipidemia Osteoarthritis Rheumatoid arthritis Surgical History delivery delivered H/O colonoscopy H/O exploratory laparotomy History of cataract surgery left History of partial colectomy Hx of colostomy S/P ORIF (open reduction internal fixation) fracture "humerus, left" Family History Other Diabetes Heart disease Social History Smoking Status: Never smoker Second Hand Exposure: No; Hx Alcohol Use: No Hx Substance Use: No Preferred Language: Citizen Of [place] Communication Ability: Effective Watch Mechanic Required: No Beliefs That Will Affect Care: None Current Living Situation: Alone Feels Safe at Home: Yes Assistive Devices: Cane, Walker and Wheelchair Review of Systems Review of Systems: All systems reviewed & are unremarkable except as noted in HPI & below Physical Exam Physical Exam: General: patient resting comfortably, NAD, non-toxic in appearance, AA&O x 4, mask in place Skin: warm, dry, intact, no rashes or lesions. Patient reports vulvar itching concerning for yeast infection - not visualized HEENT: NC/AT, PERRL, EOMI, anicteric sclera, conjunctiva without injection, external ear normal to inspection and nontender, nares patent, moist mucus membranes, dentition intact, no oropharyngeal lesions, neck supple, trachea midline, no LAD, no thyromegaly, no JVD Heart: +S1/S2, regular, no m/r/g Lungs: equal air entry bilaterally, no rales/rhonchi/wheezes Abd: +BS, soft, diffusely tender without rebound/guarding or peritoneal signs, +ostomy in place with pink stoma, liquid output without blood/mucus Ext: slightly cool, 1+ pulses PT/DP bilaterally, warmth/redness/tenderness of LLE, no crepitus/bullae/lymphangitic streaking Neuro: nonfocal, patient AA&O x 4, speech intact, no facial droop, moving all extremities on command with equal strength 5/5 Results & Data Results & Data ([facility]) Vital Signs (Past 12 Hours) Vital Signs Temp Pulse Pulse Resp BP Pulse Ox 05/14/20 19:25 85 16 98 05/14/20 19:02 83 16 129/92 99 05/14/20 17:40 80 18 100 05/14/20 17:32 82 23 122/70 99 05/14/20 17:30 84 18 99 05/14/20 17:20 80 22 05/14/20 17:10 76 19 100 05/14/20 17:00 94 H 20 100 05/14/20 16:51 81 19 95 05/14/20 16:30 84 20 98 05/14/20 16:22 96 05/14/20 16:20 18 05/14/20 16:10 93 H 17 98 05/14/20 16:00 85 17 152/83 H 05/14/20 15:56 87 16 92 05/14/20 15:11 36.6 C 85 20 152/83 H 100 05/14/20 15:06 80 21 152/83 H 99 Laboratory Results Lab Results 05/14/20 05/14/20 05/14/20 Range/Units 16:03 16:03 19:45 WBC 11.94 H (4.8-10.8) K/uL RBC 4.22 (4.2-5.4) M/uL Hgb 11.9 L (12.0-16.0) g/dL Hct 36.3 L (37-47) % MCV 86.0 (80-100) fL MCH 28.2 (25-34) pg MCHC 32.8 (32-36) g/dL RDW Std Deviation 45.9 (36.4-46.3) fL RDW Coeff of Velvet 14.7 H (11.5-14.5) % Plt Count 366 (130-400) K/uL MPV 9.9 (7.4-10.4) fL Immature Gran % (Auto) 1.1 % Neut % (Auto) 73.6 % Lymph % (Auto) 15.7 % Mobile % (Auto) 7.0 % Eos % (Auto) 2.2 % Baso % (Auto) 0.4 % Neut # (Auto) 8.78 H (1.4-6.5) K/uL Lymph # (Auto) 1.88 (1.2-3.4) K/uL Mobile # (Auto) 0.84 H (0.11-0.59) K/uL Eos # (Auto) 0.26 (0-0.5) K/uL Baso # (Auto) 0.05 (0-0.2) K/uL Immature Gran # (Auto) 0.13 H (0.00-0.02) K/uL Sodium 134 L (136-145) mmol/L Potassium 3.6 (3.5-5.1) mmol/L Chloride 104 (98-107) mmol/L Carbon Dioxide 21 (21-32) mmol/L Anion Gap 10.0 (3-11) BUN 78 H (7-18) mg/dl Creatinine 4.08 H (0.6-1.2) mg/dl Est Cr Clr Drug Dosing 17.1 ml/min Est GFR ( Amer) 12.3 Est GFR (Non-Af Amer) 10.6 BUN/Creatinine Ratio 19.2 (10-20) Glucose 215 H (70-99) mg/dl Calcium 9.3 (8.5-10.1) mg/dl Magnesium 1.6 L (1.8-2.4) mg/dl Total Bilirubin 0.2 (0.2-1) mg/dl AST 19 (15-37) U/L ALT 14 (12-78) U/L Alkaline Phosphatase 104 (45-117) U/L Total Protein 8.7 H (6.4-8.2) gm/dl Albumin 3.0 L (3.4-5.0) gm/dl Globulin 5.7 H (2.5-4.0) gm/dl Albumin/Globulin Ratio 0.5 L (0.9-2) TSH 0.737 (0.300-4.500) uIu/ml COVID-19 Eval Order Covid19 Done at [facility] COVID-19 PCR (Negative) 05/14/20 Range/Units 19:45 WBC (4.8-10.8) K/uL RBC (4.2-5.4) M/uL Hgb (12.0-16.0) g/dL Hct (37-47) % MCV (80-100) fL MCH (25-34) pg MCHC (32-36) g/dL RDW Std Deviation (36.4-46.3) fL RDW Coeff of Velvet (11.5-14.5) % Plt Count (130-400) K/uL MPV (7.4-10.4) fL Immature Gran % (Auto) % Neut % (Auto) % Lymph % (Auto) % Mobile % (Auto) % Eos % (Auto) % Baso % (Auto) % Neut # (Auto) (1.4-6.5) K/uL Lymph # (Auto) (1.2-3.4) K/uL Mobile # (Auto) (0.11-0.59) K/uL Eos # (Auto) (0-0.5) K/uL Baso # (Auto) (0-0.2) K/uL Immature Gran # (Auto) (0.00-0.02) K/uL Sodium (136-145) mmol/L Potassium (3.5-5.1) mmol/L Chloride (98-107) mmol/L Carbon Dioxide (21-32) mmol/L Anion Gap (3-11) BUN (7-18) mg/dl Creatinine (0.6-1.2) mg/dl Est Cr Clr Drug Dosing ml/min Est GFR ( Amer) Est GFR (Non-Af Amer) BUN/Creatinine Ratio (10-20) Glucose (70-99) mg/dl Calcium (8.5-10.1) mg/dl Magnesium (1.8-2.4) mg/dl Total Bilirubin (0.2-1) mg/dl AST (15-37) U/L ALT (12-78) U/L Alkaline Phosphatase (45-117) U/L Total Protein (6.4-8.2) gm/dl Albumin (3.4-5.0) gm/dl Globulin (2.5-4.0) gm/dl Albumin/Globulin Ratio (0.9-2) TSH (0.300-4.500) uIu/ml COVID-19 Eval Order COVID-19 PCR NEGATIVE (Negative) Diagnostic Findings XR foot LT min 3V routine CLINICAL HISTORY: left lateral foot cellulitis, DM. ? Osteomyelitis COMPARISON STUDY: None. FINDINGS: Lateral soft tissue swelling within the left foot. No underlying bony destruction to suggest osteomyelitis. No fracture or dislocation. The Lisfranc joint is intact. [id number] degenerative changes seen throughout the left foot. Vascular calcifications are noted. The bones are osteopenic. Plantar and posterior calcaneal spurs are present. There is also dorsal soft tissue swelling seen throughout the foot. IMPRESSION: Soft tissue swelling within the left foot. No underlying bony destruction to suggest osteomyelitis. ACT 112: Negative or not required by law. Electronically signed by: Angelo Michele M.D. 05/14/2020 5:48 PM Dictated: 05/14/201745 Transcribed: 05/14/201745 US arterial duplex LE LT CLINICAL HISTORY: eval for arterial insuff.. Left lower extremity pain. COMPARISON STUDY: None. FINDINGS: The right ankle-brachial index measured with the dorsalis pedis artery was 1.3. The left ankle-brachial indices measured between 1.3 and 1.5. This could be due to the diffusely calcified vessels. No elevated velocities to suggest stenosis. No areas of arterial occlusion. Normal biphasic waveforms seen within the left common femoral and proximal left superficial femoral artery. There are monophasic waveforms seen throughout the remaining left lower ex tremity arterial system. IMPRESSION: Monophasic waveforms seen throughout the majority of the left lower extremity arterial system likely due to the diffusely calcified plaque. No hemodynamically significant stenosis or occlusion identified. ACT 112: Negative or not required by law. Electronically signed by: Angelo Michele M.D. 05/14/2020 6:56 PM Dictated: 05/14/[id number] Transcribed: 05/14/201852 CT SCAN OF THE ABDOMEN AND PELVIS WITHOUT IV CONTRAST CLINICAL HISTORY: Generalized abdominal pain. COMPARISON STUDY: Abdominal CT dated 02/22/2019. TECHNIQUE: CT scan of the abdomen and pelvis is performed from the lung bases to the proximal femora. Images are reviewed in the axial, sagittal, and coronal planes. IV contrast was not administered for this examination. Note that the examination is suboptimal without IV contrast. A dose lowering technique was utilized adhering to the principles of ALARA. CT DOSE: 1570.29 mGy.cm FINDINGS: Lung bases: The heart is normal in size and without pericardial effusion. The coronary arteries are densely calcified. Patchy consolidation is identified in the right middle lobe. No pleural effusion is identified. There is a small hiatal hernia. Liver: The unenhanced liver is normal in size, contour, and attenuation. There is no intrahepatic biliary ductal dilatation. There is scattered hepatic granulomas. Gallbladder: There are calcified gallstones with no CT evidence of acute cholecystitis. Spleen: Normal in size and attenuation. Pancreas: The unenhanced pancreas is moderately atrophic and grossly unremarkable. Adrenal glands: Unremarkable. Kidneys: The unenhanced kidneys demonstrate cortical atrophy and are without hydronephrosis. There are numerous bilateral nonobstructing renal calculi. No ureteral stone is seen. There is no evidence of contour deforming renal mass lesion. Abdominal vasculature: The abdominal aorta is normal in course and caliber noting mild to moderate atherosclerotic calcification. Bowel: There is postoperative change from subtotal colectomy with left lower quadrant ileostomy. A rectal pouch is noted in the pelvis. There is no bowel obstruction. Peritoneum: There is no intraperitoneal free air or abdominal ascites. A midline surgical scar is seen in the pelvis. Lymphadenopathy: None. Pelvic viscera: The bladder, uterus, and adnexa are normal as visualized. Skeletal structures: The skeletal structures are osteopenic. There is advanced lumbosacral spondylosis and scoliosis. A large hemangioma is seen in the body of L5. No lytic or blastic lesions are seen. A mild wedge compression deformity of T12 is unchanged. Posttraumatic deformity and postoperative change is noted in the left proximal femur. IMPRESSION: 1. Patchy airspace consolidation is seen in the right middle lobe. Correlate clinically for evidence of an infectious/inflammatory pneumonitis. 2. 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 No bowel obstruction is seen. 3. Bilateral nephrolithiasis. 4. Cholelithiasis. 5. Additional chronic changes as above. ACT 112: Negative or not required by law. Electronically signed by: Spenser Sauer M.D. 05/14/2020 4:53 PM Dictated: 05/14/[id number] Transcribed: 05/14/20 1646 ECG Additional Comments: EKG with SR at 80pbm, PVCs, BF=943, DJL=134, ZIa=950,No acute ischemic changes Code Status & VTE Plan Code Status FULL CODE VTE Prophylaxis Plan VTE Prophylaxis will be ordered: Yes PG Care Time/CCT Total # of Minutes Spent Total Time Spent with Patient: Total time spent is greater than 50% in coordination of care (as documented) at patient's floor/unit and/or counseling patient: Coding Level of Care Code 47335 Initial Inpt Care Lvl 3 Diagnoses Cellulitis of left foot L03.116 ARF (acute renal failure) N17.9 Acute renal failure type: unspecified DM2 (diabetes mellitus, type 2) E11.9; Z79.4 Diabetes mellitus salvage determiner insulin use: with salvage determiner use Diabetes mellitus complication status: without complication Depression F32.9 Depression Type: unspecified Crohns disease K50.919 Gastrointestinal tract location: unspecified location Digestive disease complication type: unspecified complication Pneumonia J18.9 Pneumonia type: due to unspecified organism Laterality: right Lung location: middle lobe of lung (1) ARF (acute renal failure) Acute renal failure type: unspecified Qualified Code(s): N17.9 - Acute kidney failure, unspecified (2) DM2 (diabetes mellitus, type 2) Diabetes mellitus long-term insulin use: with salvage determiner use Diabetes mellitus complication status: without complication Qualified Code(s): E11.9 - Type 2 diabetes mellitus without complications; Z79.4 - skilled nursing (current) use of insulin (3) Depression Depression Type: unspecified Qualified Code(s): F32.9 - Major depressive disorder, single episode, unspecified (4) Crohns disease Gastrointestinal tract location: unspecified location Digestive disease complication type: unspecified complication Qualified Code(s): K50.919 - Crohn's disease, unspecified, with unspecified complications (5) Pneumonia Pneumonia type: due to unspecified organism Laterality: right Lung location: middle lobe of lung Qualified Code(s): J18.9 - Pneumonia, unspecified organism
[2020-05-14] MEDS ORDERED: DEXTROSE 50% 50 ML SYRINGE IV PRN (22:38)
[2020-05-14] MEDS ORDERED: GLUCOSE 10 TABS/TUBE PO PRN (22:38)
[2020-05-14] MEDS ORDERED: GLUCOSE 40% GEL 15 GM TUBE PO PRN (22:38)
[2020-05-14] MEDS ORDERED: ONDANSETRON INJ 2 MG/ML 2 ML VIAL IV PRN (22:38)
[2020-05-14] MEDS ORDERED: CARBOHYDRATES FOR HYPOGLYCEMIA PO PRN (22:38)
[2020-05-14] MEDS ORDERED: GLUCAGON FOR INJ 1 MG VIAL SQ PRN (22:38)
[2020-05-14] MEDS ORDERED: VANCOMYCIN HCL 1,000 MG in SODIUM CHLORIDE 0.9% 250 ML IV SCH (22:38)
[2020-05-14] MEDS: SODIUM CHLORIDE 0.9% 1000ML 1,000 ML IV SCH (22:42)
[2020-05-14] MEDS ORDERED: INSULIN DETEMIR FLEXPEN/FLEX TOUCH 100 UNITS/ML 3ML SQ SCH (23:00)
[2020-05-14] MEDS ORDERED: FLUCONAZOLE 50 MG TAB PO ONE (23:00)
[2020-05-14] MEDS ORDERED: GABAPENTIN 600 MG TAB PO SCH (23:00)
[2020-05-14] MEDS ORDERED: MAGNESIUM SULFATE / D5W 1 GM/100 ML BAG IV ONE (23:00)
[2020-05-14] MEDS: INSULIN ASPART 100 UNITS/ML 3 ML PEN SC SCH (23:35)
[2020-05-14] MEDS: HEPARIN SOD 5,000 UNIT/0.5 ML VIAL SQ SCH (23:35)
[2020-05-14] MEDS: GABAPENTIN 100 MG CAP PO SCH (23:51)
[2020-05-14] MEDS: ACETAMINOPHEN 500 MG TAB PO PRN (23:51)
[2020-05-15 00:28] LABS: C Reactive Protein 3.34 mg/dl (0-0.29); Phosphorus 3.8 mg/dl (2.5-4.9)
[2020-05-15 00:31] LABS: Appearance Urine Clear (Clear); Bacteria Urine Automated Negative (Negative); Bilirubin Urine Negative (Negative); Blood Urine 1+ (Negative); Color Urine Yellow; Epithelial Cell Urine Auto >30 /lpf (0-5); Glucose Urine UA Negative (Negative); Ketones Urine Negative (Negative); Leukocyte Esterase Urine 1+ (Negative); Nitrite Urine Negative (Negative); Protein Urine 1+ (Negative); Specific Gravity Urine 1.019 (1.000-1.030); Urobilinogen Urine Negative (Negative)
[2020-05-15] MEDS: ACETAMINOPHEN 500 MG TAB PO PRN ×2 (05:07→14:03)
[2020-05-15] MEDS: HEPARIN SOD 5,000 UNIT/0.5 ML VIAL SQ SCH ×3 (05:07→20:24)
[2020-05-15 06:10] LABS: Basophils # (auto) 0.03 K/uL (0-0.2); Basophils % (auto) 0.3 %; Eosinophils # (auto) 0.29 K/uL (0-0.5); Eosinophils % (auto) 3.2 %; Hemoglobin 10.4 g/dL (12.0-16.0); Immature Granulocytes # (auto) 0.12 K/uL (0.00-0.02); Immature Granulocytes % (auto) 1.3 %; Lymphocytes # (auto) 2.06 K/uL (1.2-3.4); Lymphocytes % (auto) 22.4 %; Mean Corpuscular Hemoglobin 28.6 pg (25-34); Mean Corpuscular Hgb Conc 32.5 g/dL (32-36); Mean Corpuscular Volume 87.9 fL (80-100); Mean Platelet Volume 9.5 fL (7.4-10.4); Monocytes # (auto) 0.58 K/uL (0.11-0.59); Monocytes % (auto) 6.3 %; Neutrophils # (auto) 6.12 K/uL (1.4-6.5); Neutrophils % (auto) 66.5 %; Platelet Count 305 K/uL (130-400); RDW Coefficient of Variation 14.9 % (11.5-14.5); RDW Standard Deviation 47.9 fL (36.4-46.3); Red Blood Count 3.64 M/uL (4.2-5.4)
--- NOTE | 2020-05-15 06:32 | Ultrasound Report ---
LEFT LOWER EXTREMITY VENOUS DOPPLER CLINICAL HISTORY: Left leg swelling. Evaluate for deep venous thrombus. COMPARISON STUDY: Bilateral lower extremity venous Doppler ultrasound September 21, 2014. TECHNIQUE: Sonography of the deep venous system of the left lower extremity was performed. Compressi on and augmentation were evaluated. FINDINGS: The left common femoral, superficial femoral and popliteal veins were compressible. Augmen tation was normal. Flow was shown within the deep calf vessels. IMPRESSION: No evidence of deep venous thrombus within the left lower extremity. ACT 112: Negative or not required by law. Electronically signed by: Armaan Pennington M.D. 05/15/2020 6:31 AM
[2020-05-15 06:49] LABS: Alanine Aminotransferase 14 U/L (12-78); Albumin Level 2.5 gm/dl (3.4-5.0); Aspartate Aminotransferase 17 U/L (15-37); BUN Creatinine Ratio 21.9 (10-20); Bilirubin Direct < 0.1 mg/dl (0-0.2); Blood Urea Nitrogen 76 mg/dl (7-18); Calcium 8.2 mg/dl (8.5-10.1); Carbon Dioxide 21 mmol/L (21-32); Chloride 112 mmol/L (98-107); Creatinine Clr Calc Pharmacy 20.3 ml/min; Est GFR (African American) 15.1; Glucose 154 mg/dl (70-99); Potassium 3.6 mmol/L (3.5-5.1); Sodium 139 mmol/L (136-145)
[2020-05-15 07:20] LABS: Alkaline Phosphatase 95 U/L (45-117); Bilirubin,Total 0.2 mg/dl (0.2-1); Total Protein 6.9 gm/dl (6.4-8.2)
[2020-05-15] MEDS: SODIUM CHLORIDE 0.9% 1000ML 1,000 ML IV SCH (07:54)
[2020-05-15] MEDS: NYSTATIN POWDER 15GM BTL EXT SCH (07:55)
[2020-05-15] MEDS: GABAPENTIN 100 MG CAP PO SCH ×2 (07:55→20:21)
[2020-05-15] MEDS: DULoxetine HCL 60 MG CAP PO SCH (07:55)
[2020-05-15] MEDS: INSULIN ASPART 100 UNITS/ML 3 ML PEN SC SCH ×4 (07:58→20:57)
[2020-05-15] MEDS ORDERED: GABAPENTIN 100 MG CAP PO SCH (09:00)
[2020-05-15] MEDS ORDERED: VANCOMYCIN HCL 1,500 MG in SODIUM CHLORIDE 0.9% 500 ML IV ONE (09:00)
[2020-05-15] MEDS: oxyCODONE HCL IR 5 MG TAB (IMMEDIATE RELEASE) PO PRN ×3 (09:45→20:21)
[2020-05-15 09:48] LABS: Magnesium 1.9 mg/dl (1.8-2.4)
--- NOTE | 2020-05-15 10:50 | Pharmacy Report ---
Pharmacy Abx Dose Short Note - Date of Service May 15, 2020 - Assessment & Plan Assessment 65 year old F receiving Vancomycin + Cefepime for treatment of SST, r/o osteomyelitis Pt also with PNA being covered with abx listed above Acute renal failure secondary to n/v, ?dehydration, pre-renal azotemia. Will dose vancomycin with one time doses followed by random levels to prevent nephrotoxicity Plan Vancomycin * Random level this AM = 16.5 mcg/ml. This is in goal trough level for PNA/SST therefore appropriate to re-dose this AM. * Will give Vanco 15mg/kg IV x 1 dose this AM and re-check a random level tomorrow with AM labs. Will continue to re-dose when random levels are in goal trough range * Goal trough level for SST/PNA : 15 to 20 mcg/mL * Trough or random level ordered for: 05/16/20 w/ AM labs Pharmacy will continue to follow and will adjust dose/frequency as necessary. Thank you.
[2020-05-15] MEDS ORDERED: predniSONE 20 MG TAB PO STA (12:14)
--- NOTE | 2020-05-15 12:17 | Hospitalist Progress Note ---
Date of Service May 15, 2020 Assessment & Plan (1) Gouty arthritis of left foot: left foot and ankle findings are c/w gout arthritis. this is unlikely to be cellulitis - d/c abx. sed rate and uric acid highly suggestive of gout. prednisone 20mg x 1 now. if she responds to this then course of low-dose prednisone. ankle/foot x-rays without osteo, CPPD changes, or fractures. 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 h/o colectomy for Crohn's. copious daily output leading to dehydration/PERLA. start loperamide TID. titrate. could always use questran as well. strict output from ileostomy. (3) Ileostomy in place: see above (4) ARF (acute renal failure): 2nd volume depletion. cont IV fluids. repeat BMP am. (5) Crohns disease: long-standing. h/o colectomy. ileostomy in place. on humira. no active disease on recent imaging. (6) DM2 (diabetes mellitus, type 2): adjust levemir and novolog due to steroid use (7) Chronic low back pain: previously on pain contract likely severe DJD allow oxycodone prn (8) Obesity: BMI 36 (9) Chronic kidney disease, stage 3a: baseline Cr about 2?? serial daily BMPs (10) Abnormal CT of the chest: RML infiltrates, but no pulmonary symptoms. will defer on antibiotics for now. (11) Chronic abdominal pain: nontender on exam today. LFTs, lipase acceptable. gastritis? other? add pepcid once daily. (12) DVT prophylaxis: heparin SC PT, OT evals Admission and Anticipated Discharge Date Admission Date: May 14, 2020 Subjective patient with numerous complaints -- 1. left foot and ankle pain x 1 week - started abruptly upon awakening 1 week ago. She had been admitted to [facility] about that time for dehydration? 2. chronic back pain and "arthritis" - previously was on pain contract - when I asked her why she is no longer prescribed narcotics she said "I don't know." 3. chronic upper abdominal pain - NOT associated with food. Present months or longer. 4. dumping from ileostomy - empties bag sometimes up to 10x/day. Sees Jasmyne Bee at [facility]. 5. Difficulty ambulating due to #1. Review of Systems Constitutional: no fever, no chills, no fatigue and no anorexia Respiratory: no cough Cardiovascular: no chest pain Gastrointestinal: + abdominal pain, + nausea and + vomiting (x 1 this am ) Musculoskeletal: + back pain Integumentary: blisters, 1-2 at times, which rupture then take a while to hear Physical Exam Constitutional: + morbidly obese; no acute distress and no altered mental status ENMT: Mouth: + dry oral mucous membranes Respiratory: normal respiratory effort, lungs clear to auscultation Cardiovascular: Rate/Rhythm: regular rate and regular rhythm Heart Sounds: normal S1 and normal S2; no murmur Vessels: posterior tibial pulses present and dorsalis pedis pulses present; no JVD Extremities: + edema Gastrointestinal (Abdomen): Inspection/Auscultation: normal bowel sounds; abdomen not distended Percussion/Palpation: abdomen soft; abdomen nontender and no hepatosplenomegaly ileostomy, left abdomen, with copious liquid light brown stool; no blood or mucous Musculoskeletal: synovitis left ankle and left mid-foot; tender with passive ROM; tender with palpation Skin: left foot - mild erythema over mid-foot dorsum and left ankle; not c/w cellulitis; occasional ulceration abdominal wall; scars abdominal wall Psychiatric: Orientation: alert and oriented x 3 Results & Data Results & Data ([facility]) Vital Signs (Past 12 Hours) Vital Signs Temp Pulse Pulse Resp BP BP Pulse Ox 05/15/20 07:30 36.6 C 82 18 123/75 99 05/15/20 01:19 36.5 C 84 16 115/70 99 Laboratory Results Laboratory Results - last 24 hr 05/14/20 05/14/20 05/14/20 16:03 16:03 16:03 WBC 11.94 H RBC 4.22 Hgb 11.9 L Hct 36.3 L MCV 86.0 MCH 28.2 MCHC 32.8 RDW Std Deviation 45.9 RDW Coeff of Velvet 14.7 H Plt Count 366 MPV 9.9 Immature Gran % (Auto) 1.1 Neut % (Auto) 73.6 Lymph % (Auto) 15.7 [facility] % (Auto) 7.0 Eos % (Auto) 2.2 Baso % (Auto) 0.4 Neut # (Auto) 8.78 H Lymph # (Auto) 1.88 [facility] # (Auto) 0.84 H Eos # (Auto) 0.26 Baso # (Auto) 0.05 Immature Gran # (Auto) 0.13 H ESR 78 H Sodium 134 L Potassium 3.6 Chloride 104 Carbon Dioxide 21 Anion Gap 10.0 BUN 78 H Creatinine 4.08 H Est Cr Clr Drug Dosing 17.1 Est GFR ( Amer) 12.3 Est GFR (Non-Af Amer) 10.6 BUN/Creatinine Ratio 19.2 Glucose 215 H POC Glucose Calcium 9.3 Phosphorus 3.8 Magnesium 1.6 L Total Bilirubin 0.2 Direct Bilirubin AST 19 ALT 14 Alkaline Phosphatase 104 C-Reactive Protein 3.34 H Total Protein 8.7 H Albumin 3.0 L Globulin 5.7 H Albumin/Globulin Ratio 0.5 L Lipase TSH 0.737 Urine Color Urine Appearance Urine pH Ur Specific Colbert Urine Protein Urine Glucose (UA) Urine Ketones Urine Blood Urine Nitrite Urine Bilirubin Urine Urobilinogen Ur Leukocyte Esterase Urine WBC (Auto) Urine RBC (Auto) U Hyaline Cast (Auto) U Epithel Cells (Auto) Urine Bacteria (Auto) Urine Yeast Stl C. diff Tox B Gene Random Vancomycin COVID-19 Eval Order COVID-19 PCR 05/14/20 05/14/20 05/14/20 19:45 19:45 23:14 WBC RBC Hgb Hct MCV MCH MCHC RDW Std Deviation RDW Coeff of Velvet Plt Count MPV Immature Gran % (Auto) Neut % (Auto) Lymph % (Auto) [facility] [place] % (Auto) Eos % (Auto) Baso % (Auto) Neut # (Auto) Lymph # (Auto) [facility] [place] # (Auto) Eos # (Auto) Baso # (Auto) Immature Gran # (Auto) ESR Sodium Potassium Chloride Carbon Dioxide Anion Gap BUN Creatinine Est Cr Clr Drug Dosing Est GFR ( Amer) Est GFR (Non-Af Amer) BUN/Creatinine Ratio Glucose POC Glucose 211 H Calcium Phosphorus Magnesium Total Bilirubin Direct Bilirubin AST ALT Alkaline Phosphatase C-Reactive Protein Total Protein Albumin Globulin Albumin/Globulin Ratio Lipase TSH Urine Color Urine Appearance Urine pH Ur Specific Colbert Urine Protein Urine Glucose (UA) Urine Ketones Urine Blood Urine Nitrite Urine Bilirubin Urine Urobilinogen Ur Leukocyte Esterase Urine WBC (Auto) Urine RBC (Auto) U Hyaline Cast (Auto) U Epithel Cells (Auto) Urine Bacteria (Auto) Urine Yeast Stl C. diff Tox B Gene Random Vancomycin COVID-19 Eval Order Covid19 Done at [facility] COVID-19 PCR NEGATIVE 05/15/20 05/15/20 05/15/20 00:10 00:10 05:43 WBC 9.20 RBC 3.64 L Hgb 10.4 L Hct 32.0 L MCV 87.9 MCH 28.6 MCHC 32.5 RDW Std Deviation 47.9 H RDW Coeff of Velvet 14.9 H Plt Count 305 MPV 9.5 Immature Gran % (Auto) 1.3 Neut % (Auto) 66.5 Lymph % (Auto) 22.4 [facility] [place] % (Auto) 6.3 Eos % (Auto) 3.2 Baso % (Auto) 0.3 Neut # (Auto) 6.12 Lymph # (Auto) 2.06 [facility] [place] # (Auto) 0.58 Eos # (Auto) 0.29 Baso # (Auto) 0.03 Immature Gran # (Auto) 0.12 H ESR Sodium Potassium Chloride Carbon Dioxide Anion Gap BUN Creatinine Est Cr Clr Drug Dosing Est GFR ( Amer) Est GFR (Non-Af Amer) BUN/Creatinine Ratio Glucose POC Glucose Calcium Phosphorus Magnesium Total Bilirubin Direct Bilirubin AST ALT Alkaline Phosphatase C-Reactive Protein Total Protein Albumin Globulin Albumin/Globulin Ratio Lipase TSH Urine Color Yellow Urine Appearance Clear Urine pH 5.0 Ur Specific Colbert 1.019 Urine Protein 1+ H Urine Glucose (UA) Negative Urine Ketones Negative Urine Blood 1+ H Urine Nitrite Negative Urine Bilirubin Negative Urine Urobilinogen Negative Ur Leukocyte Esterase 1+ H Urine WBC (Auto) 5-10 H Urine RBC (Auto) 5-10 H U Hyaline Cast (Auto) 1-5 U Epithel Cells (Auto) >30 H Urine Bacteria (Auto) Negative Urine Yeast Not Reportable Stl C. diff Tox B Gene Negative Cdiff Gene Random Vancomycin COVID-19 Eval Order COVID-19 PCR 05/15/20 05/15/20 05/15/20 05:43 05:43 05:43 WBC RBC Hgb Hct MCV MCH MCHC RDW Std Deviation RDW Coeff of Velvet Plt Count MPV Immature Gran % (Auto) Neut % (Auto) Lymph % (Auto) [facility] [place] [facility] % (Auto) Eos % (Auto) Baso % (Auto) Neut # (Auto) Lymph # (Auto) [facility] [place] [facility] # (Auto) Eos # (Auto) Baso # (Auto) Immature Gran # (Auto) ESR Sodium 139 Potassium 3.6 Chloride 112 H Carbon Dioxide 21 Anion Gap 6.0 BUN 76 H Creatinine 3.46 H D Est Cr Clr Drug Dosing 20.3 Est GFR ( Amer) 15.1 Est GFR (Non-Af Amer) 13.0 BUN/Creatinine Ratio 21.9 H Glucose 154 H POC Glucose Calcium 8.2 L Phosphorus Magnesium 1.9 Total Bilirubin 0.2 Direct Bilirubin < 0.1 AST 17 ALT 14 Alkaline Phosphatase 95 C-Reactive Protein Total Protein 6.9 D Albumin 2.5 L Globulin Albumin/Globulin Ratio Lipase 420 H TSH Urine Color Urine Appearance Urine pH Ur Specific Colbert Urine Protein Urine Glucose (UA) Urine Ketones Urine Blood Urine Nitrite Urine Bilirubin Urine Urobilinogen Ur Leukocyte Esterase Urine WBC (Auto) Urine RBC (Auto) U Hyaline Cast (Auto) U Epithel Cells (Auto) Urine Bacteria (Auto) Urine Yeast Stl C. diff Tox B Gene Random Vancomycin 16.5 COVID-19 Eval Order COVID-19 PCR 05/15/20 05/15/20 07:44 11:43 WBC RBC Hgb Hct MCV MCH MCHC RDW Std Deviation RDW Coeff of Velvet Plt Count MPV Immature Gran % (Auto) Neut % (Auto) Lymph % (Auto) [facility] [place] [facility] % (Auto) Eos % (Auto) Baso % (Auto) Neut # (Auto) Lymph # (Auto) [facility] # (Auto) Eos # (Auto) Baso # (Auto) Immature Gran # (Auto) ESR Sodium Potassium Chloride Carbon Dioxide Anion Gap BUN Creatinine Est Cr Clr Drug Dosing Est GFR ( Amer) Est GFR (Non-Af Amer) BUN/Creatinine Ratio Glucose POC Glucose 165 H 174 H Calcium Phosphorus Magnesium Total Bilirubin Direct Bilirubin AST ALT Alkaline Phosphatase C-Reactive Protein Total Protein Albumin Globulin Albumin/Globulin Ratio Lipase TSH Urine Color Urine Appearance Urine pH Ur Specific Colbert Urine Protein Urine Glucose (UA) Urine Ketones Urine Blood Urine Nitrite Urine Bilirubin Urine Urobilinogen Ur Leukocyte Esterase Urine WBC (Auto) Urine RBC (Auto) U Hyaline Cast (Auto) U Epithel Cells (Auto) Urine Bacteria (Auto) Urine Yeast Stl C. diff Tox B Gene Random Vancomycin COVID-19 Eval Order COVID-19 PCR PG Care Time/CCT Total # of Minutes Spent Total Time Spent with Patient: Total time spent is greater than 50% in coordination of care (as documented) at patient's floor/unit and/or counseling patient: Coding Level of Care Code 78249 Subs Hosp Care Lvl 3 Diagnoses Gouty arthritis of left foot M10.9 Dumping syndrome K91.[address] Z93.2 ARF (acute renal failure) N17.9 Acute renal failure type: unspecified Crohns disease K50.919 Gastrointestinal tract location: unspecified location Digestive disease complication type: unspecified complication DM2 (diabetes mellitus, type 2) E11.9; Z79.4 Diabetes mellitus complication status: without complication Diabetes mellitus snf insulin use: with snf use Chronic low back pain M54.5; G89.29 Back pain laterality: unspecified Sciatica presence: unspecified whether sciatica present Obesity E66.01; Z68.36 Obesity type: unspecified obesity type Obesity classification: adult class 2 (BMI 35 - 39.9) Serious obesity comorbidity presence: with serious comorbidity Body mass index: BMI 36.0-36.9 Chronic kidney disease, stage 3a N18.[address] of the chest R93.89 Chronic abdominal pain R10.9; G89.29 DVT prophylaxis Z29.9 (1) ARF (acute renal failure) Acute renal failure type: unspecified Qualified Code(s): N17.9 - Acute kidney failure, unspecified (2) Crohns disease Gastrointestinal tract location: unspecified location Digestive disease complication type: unspecified complication Qualified Code(s): K50.919 - Crohn's disease, unspecified, with unspecified complications (3) DM2 (diabetes mellitus, type 2) Diabetes mellitus complication status: without complication Diabetes mellitus snf insulin use: with assistant terminal manager use Qualified Code(s): E11.9 - Type 2 diabetes mellitus without complications; Z79.4 - intermediate accountant (current) use of insulin (4) Chronic low back pain Back pain laterality: unspecified Sciatica presence: unspecified whether sciatica present Qualified Code(s): M54.5 - Low back pain; G89.29 - Other ch ronic pain (5) Obesity Obesity type: unspecified obesity type Obesity classification: adult class 2 (BMI 35 - 39.9) Serious obesity comorbidity presence: with serious comorbidity Body mass index: BMI 36.0-36.9 Qualified Code(s): E66.01 - Morbid (severe) obesity due to excess calories; Z68.36 - Body mass index [BMI] 36.0-36.9, adult
--- NOTE | 2020-05-15 13:00 | XRay Report ---
XR ankle LT min 3V routine CLINICAL HISTORY: ?gout vs CPPD of left ankle? COMPARISON: Left foot radiographs May 14, 2020. FINDINGS: Note is made of moderate posterior calcaneal spurring. Talar dome is intact. No acute frac ture is noted. Ankle soft tissue swelling is present. No soft tissue calcifications are identified. M oderate degenerative changes within the left ankle present however tibiotalar joint spaces preserved. IMPRESSION: 1. No acute fracture or dislocation within the left ankle. 2. Moderate degenerative changes of the left ankle. 3. Posterior calcaneal spurring. ACT 112: Negative or not required by law. Electronically signed by: Armaan Pennington M.D. 05/15/2020 12:59 PM
[2020-05-15] MEDS: LOPERAMIDE HCL 2 MG CAP PO SCH ×2 (14:01→20:21)
--- NOTE | 2020-05-15 16:54 | Electrocardiogram Report ---
Test Reason : Blood Pressure : / mmHG Vent. Rate : 080 BPM Atrial Rate : 080 BPM P-R Int : 178 ms QRS Dur : 106 ms QT Int : 414 ms P-R-T Axes : 024 -39 -10 degrees QTc Int : 477 ms Sinus rhythm with frequent Premature ventricular complexes Left axis deviation Cannot rule out Anterior infarct (cited on or before 01-NOV-2013) Abnormal ECG When compared with ECG of 11-DEC-2016 05:01, T wave inversion now evident in Inferior leads Nonspecific T wave abnormality no longer evident in Anterior leads Confirmed by Sumit Beckford ([id number]) on 05/15/2020 4:53:57 PM Referred By: REFERRED SELF Confirmed By:Jann Beckford
[2020-05-15] MEDS ORDERED: CEFEPIME 2,000 MG in SYRINGE 0 ML IV SCH (18:00)
[2020-05-15] MEDS: INSULIN DETEMIR FLEXPEN/FLEX TOUCH 100 UNITS/ML 3ML SQ SCH (20:58)
[2020-05-16] MEDS: oxyCODONE HCL IR 5 MG TAB (IMMEDIATE RELEASE) PO PRN ×4 (01:06→20:59)
[2020-05-16] MEDS: HEPARIN SOD 5,000 UNIT/0.5 ML VIAL SQ SCH ×3 (05:14→21:00)
[2020-05-16 06:25] LABS: BUN Creatinine Ratio 21.1 (10-20); Calcium 8.1 mg/dl (8.5-10.1); Creatinine Clr Calc Pharmacy 24.1 ml/min; Est GFR (African American) 18.6; Potassium 3.9 mmol/L (3.5-5.1)
[2020-05-16] MEDS: DULoxetine HCL 60 MG CAP PO SCH (08:17)
[2020-05-16] MEDS: GABAPENTIN 100 MG CAP PO SCH ×2 (08:17→20:59)
[2020-05-16] MEDS: INSULIN ASPART 100 UNITS/ML 3 ML PEN SC SCH ×4 (08:17→21:01)
[2020-05-16] MEDS: NYSTATIN POWDER 15GM BTL EXT SCH (08:18)
[2020-05-16] MEDS: LOPERAMIDE HCL 2 MG CAP PO SCH ×3 (08:20→20:59)
[2020-05-16] MEDS ORDERED: predniSONE 5 MG TAB PO ONE (09:11)
[2020-05-16] MEDS ORDERED: STAT IV STA (09:11)
[2020-05-16] MEDS ORDERED: ERGOCALCIFEROL 50,000 UNITS 1250 MCG CAP PO ONE (09:12)
[2020-05-16] MEDS: SODIUM BICARBONATE 8.4% 75 MEQ in SODIUM CHLORIDE 0.45 % 1,000 ML IV SCH ×2 (10:05→23:52)
[2020-05-16] MEDS: FLUCONAZOLE 100 MG TAB PO SCH (11:03)
[2020-05-16] MEDS: FAMOTIDINE 20 MG TAB PO SCH (11:03)
[2020-05-16] MEDS: INSULIN DETEMIR FLEXPEN/FLEX TOUCH 100 UNITS/ML 3ML SQ SCH (21:02)
[2020-05-16] MEDS ORDERED: LOPERAMIDE HCL 2 MG CAP PO STA (22:34)
--- NOTE | 2020-05-16 22:35 | Hospitalist Progress Note ---
Date of Service May 16, 2020 Assessment & Plan (1) Gouty arthritis of left foot: IMPROVED with prednisone overnight. Uric acid level >14. sed rate/crp elevated. likely cause of gout -- CKD. prednisone 15mg x 1 today, then 10mg/day starting tomorrow. would Rx for 7-10 days. ankle/foot x-rays without osteo, CPPD changes, or fractures. 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 h/o colectomy for Crohn's. copious daily output leading to dehydration/PERLA. increase loperamide to QID dosing. may need additional titration. could always use questran as well. Nursing to record strict outputs from ileostomy. (3) Ileostomy in place: see above (4) ARF (acute renal failure): 2nd volume depletion. IMPROVING. cont IV fluids. repeat BMP am. (5) Crohns disease: long-standing. h/o colectomy. ileostomy in place. on humira. no active disease on recent imaging. (6) DM2 (diabetes mellitus, type 2): uncontrolled due to steroids. adjust levemir and novolog. (7) Chronic low back pain: previously on pain contract in [place]. likely severe DJD. cont oxycodone prn. (8) Obesity: BMI 36 (9) Chronic kidney disease, stage 3a: baseline Cr about 2?? serial daily BMPs (10) Abnormal CT of the chest: RML infiltrates, but no pulmonary symptoms. no fever. will defer on antibiotics for now. (11) Chronic abdominal pain: again nontender on exam today. has gallstones but no pain with eating. LFTs, lipase acceptable. gastritis? other? cont pepcid once daily. (12) UTI (urinary tract infection): 2nd to audrey albicans. start diflucan 100mg daily. (13) Vitamin D deficiency: ergocalciferol 06123 units weekly x 8 weeks (14) DVT prophylaxis: heparin SC PT, OT evals appreciated making progress Admission and Anticipated Discharge Date Admission Date: May 14, 2020 Subjective patient still with copious ileostomy output. 2+ liters since yesterday. left foot/ankle MUCH improved; able to weight bear and walked the hallway today. abd pain and back pain improved with pain meds. eating well. overall is happy with progress. Review of Systems Constitutional: no fever, no chills, no fatigue and no anorexia Respiratory: no cough and no dyspnea Cardiovascular: no chest pain Gastrointestinal: no abdominal pain, no nausea and no vomiting Musculoskeletal: as per Subjective / HPI Physical Exam Constitutional: + morbidly obese; no acute distress and no altered mental status ENMT: external ear and nose normal, oropharynx normal Mouth: oral mucous membranes not dry Respiratory: normal respiratory effort, lungs clear to auscultation Cardiovascular: Rate/Rhythm: regular rate and regular rhythm Heart Sounds: normal S1 and normal S2; no murmur Vessels: posterior tibial pulses present and dorsalis pedis pulses present; no JVD Extremities: + edema (focal - left ankle/foot - improved today ) Gastrointestinal (Abdomen): Inspection/Auscultation: normal bowel sounds; abdomen not distended Percussion/Palpation: abdomen soft; abdomen nontender and no hepatosplenomegaly ileostomy in place - copious light-brown liquid stool Musculoskeletal: left ankle and left mid-foot -- MARKED improvement in swelling and warmth today; able to palpate these joints without pain. Able to passively place ankle through ROM without pain. Skin: no cellulitis of either leg or foot Psychiatric: Orientation: alert and oriented x 3 Results & Data Results & Data ([facility]) Vital Signs (Past 12 Hours) Vital Signs Temp Pulse Resp BP Pulse Ox 05/16/20 16:10 36.8 C 66 15 116/72 97 Laboratory Results Laboratory Results - last 24 hr 05/16/20 05/16/20 05/16/20 05:26 05:26 07:43 Sodium 137 Potassium 3.9 Chloride 112 H Carbon Dioxide 18 L Anion Gap 7.0 BUN 61 H Creatinine 2.91 H D Est Cr Clr Drug Dosing 24.1 Est GFR ( Amer) 18.6 Est GFR (Non-Af Amer) 16.0 BUN/Creatinine Ratio 21.1 H Glucose 133 H POC Glucose 115 H Calcium 8.1 L 25-OH Vitamin D Total 14.4 L 05/16/20 05/16/20 05/16/20 11:40 16:41 20:53 Sodium Potassium Chloride Carbon Dioxide Anion Gap BUN Creatinine Est Cr Clr Drug Dosing Est GFR ( Amer) Est GFR (Non-Af Amer) BUN/Creatinine Ratio Glucose POC Glucose 109 H 172 H 166 H Calcium 25-OH Vitamin D Total urine cx - audrey albicans stool cx pending blood cx's negative to date PG Care Time/CCT Total # of Minutes Spent Total Time Spent with Patient: Total time spent is greater than 50% in coordination of care (as documented) at patient's floor/unit and/or counseling patient: Coding Level of Care Code 71232 Subseq Hosp Care Lvl 3 Diagnoses Gouty arthritis of left foot M10.9 Dumping syndrome K91.[address] Z93.2 ARF (acute renal failure) N17.9 Acute renal failure type: unspecified Crohns disease K50.919 Digestive disease complication type: unspecified complication Gastrointestinal tract location: unspecified location DM2 (diabetes mellitus, type 2) E11.9; Z79.4 Diabetes mellitus complication status: without complication Diabetes mellitus termite treater helper insulin use: with termite treater helper use Chronic low back pain M54.5; G89.29 Back pain laterality: unspecified Sciatica presence: unspecified whether sciatica present Obesity E66.01; Z68.36 Body mass index: BMI 36.0-36.9 Obesity classification: adult class 2 (BMI 35 - 39.9) Obesity type: unspecified obesity type Serious obesity comorbidity presence: with serious comorbidity Chronic kidney disease, stage 3a N18.[address] of the chest R93.89 Chronic abdominal pain R10.9; G89.29 UTI (urinary tract infection) N30.00 Urinary tract infection type: acute cystitis Hematuria presence: without hematuria Vitamin D deficiency E55.9 DVT prophylaxis Z29.9 (1) Chronic low back pain Back pain laterality: unspecified Sciatica presence: unspecified whether sciatica present Qualified Code(s): M54.5 - Low back pain; G89.29 - Other chronic pain (2) ARF (acute renal failure) Acute renal failure type: unspecified Qualified Code(s): N17.9 - Acute kidney failure, unspecified (3) DM2 (diabetes mellitus, type 2) Diabetes mellitus complication status: without complication Diabetes mellitus jail insulin use: with termite treater helper use Qualified Code(s): E11.9 - Type 2 diabetes mellitus without complications; Z79.4 - termite treater helper (current) use of insulin (4) Crohns disease Digestive disease complication type: unspecified complication Gastrointestinal tract location: unspecified location Qualified Code(s): K50.919 - Crohn's disease, unspecified, with unspecified complications (5) Obesity Body mass index: BMI 36.0-36.9 Obesity classification: adult class 2 (BMI 35 - 39.9) Obesity type: unspecified obesity type Serious obesity comorbidity presence: with serious comorbidity Qualified Code(s): E66.01 - Morbid (severe) obesity due to excess calories; Z68.36 - Body mass index [BMI] 36.0-36.9, adult (6) UTI (urinary tract infection) Urinary tract infection type: acute cystitis Hematuria presence: without hematuria Qualified Code(s): N30.00 - Acute cystitis without hematuria
[2020-05-17] MEDS: HEPARIN SOD 5,000 UNIT/0.5 ML VIAL SQ SCH ×3 (05:08→21:14)
[2020-05-17] MEDS: oxyCODONE HCL IR 5 MG TAB (IMMEDIATE RELEASE) PO PRN ×4 (05:13→19:47)
[2020-05-17 06:47] LABS: Hematocrit (blood only) 29.2 % (37-47); Hemoglobin 9.7 g/dL (12.0-16.0); Mean Corpuscular Hemoglobin 28.6 pg (25-34); Mean Corpuscular Hgb Conc 33.2 g/dL (32-36); Mean Corpuscular Volume 86.1 fL (80-100); Mean Platelet Volume 9.1 fL (7.4-10.4); Platelet Count 294 K/uL (130-400); RDW Coefficient of Variation 14.8 % (11.5-14.5); RDW Standard Deviation 46.4 fL (36.4-46.3); Red Blood Count 3.39 M/uL (4.2-5.4); White Blood Count 10.45 K/uL (4.8-10.8)
[2020-05-17 07:17] LABS: BUN Creatinine Ratio 21.6 (10-20); Calcium 8.5 mg/dl (8.5-10.1); Creatinine Clr Calc Pharmacy 26.8 ml/min; Est GFR (African American) 21.1; Est GFR (Non-African American) 18.2; Potassium 3.7 mmol/L (3.5-5.1)
[2020-05-17 07:26] LABS: Ferritin 99.5 ng/ml (8-388)
[2020-05-17] MEDS: predniSONE 10 MG TABLET PO SCH (08:07)
[2020-05-17] MEDS: LOPERAMIDE HCL 2 MG CAP PO SCH ×4 (08:07→21:15)
[2020-05-17] MEDS: NYSTATIN POWDER 15GM BTL EXT SCH (08:08)
[2020-05-17] MEDS: GABAPENTIN 100 MG CAP PO SCH ×2 (08:08→21:11)
[2020-05-17] MEDS: FLUCONAZOLE 100 MG TAB PO SCH (08:08)
[2020-05-17] MEDS: DULoxetine HCL 60 MG CAP PO SCH (08:08)
[2020-05-17] MEDS: FAMOTIDINE 20 MG TAB PO SCH (08:08)
[2020-05-17] MEDS: INSULIN ASPART 100 UNITS/ML 3 ML PEN SC SCH ×4 (08:55→20:33)
[2020-05-17 09:50] LABS: Folate (Folic Acid) 6.9 ng/ml (>5.38)
[2020-05-17] MEDS ORDERED: COLESTIPOL HCL 1 GM TAB PO SCH (13:55)
[2020-05-17] MEDS: FOLIC ACID 1 MG in SYRINGE 9.8 ML IV SCH (14:22)
[2020-05-17] MEDS: CYANOCOBALAMIN 1000 MCG/ML VIAL IM SCH (14:40)
[2020-05-17] MEDS: INSULIN DETEMIR FLEXPEN/FLEX TOUCH 100 UNITS/ML 3ML SQ SCH (21:10)
--- NOTE | 2020-05-17 21:32 | Hospitalist Progress Note ---
Date of Service May 17, 2020 Assessment & Plan (1) Gouty arthritis of left foot: Just about resolved s/p prednisone. Uric acid level >14. sed rate/crp elevated. likely cause of gout -- CKD. prednisone 10mg daily for 5-7 more days. ankle/foot x-rays without osteo, CPPD changes, or fractures. (2) ARF (acute renal failure): 2nd volume depletion from dumping, etc. IMPROVING. cont IV fluids until the am, then likely stop. repeat BMP am. 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 h/o colectomy for Crohn's. copious daily output leading to dehydration/PERLA. increased loperamide to QID dosing and output much improved. could always use questran as well. Nursing to continue recording strict outputs from ileostomy. (4) Ileostomy in place: see above (5) Crohns disease: long-standing. h/o colectomy. ileostomy in place. on humira. no active disease on recent imaging. (6) DM2 (diabetes mellitus, type 2): uncontrolled due to steroids but improved. cont levemir and novolog. (7) Chronic low back pain: previously on pain contract in [place]. likely severe DJD. cont oxycodone prn. (8) Obesity: BMI 36 (9) Chronic kidney disease, stage 3a: baseline Cr about 2?? serial daily BMPs to determine baseline PERLA improving w/ fluids (10) Abnormal CT of the chest: RML infiltrates, but no pulmonary symptoms. no fever. cont to defer on antibiotics. (11) Chronic abdominal pain: again nontender on exam today. has gallstones but no pain with eating. LFTs, lipase acceptable. gastritis? other? cont pepcid once daily. (12) UTI (urinary tract infection): 2nd to audrey albicans. day #2 diflucan 100mg. (13) Vitamin D deficiency: ergocalciferol 84980 units weekly x 8 weeks (14) Anemia: likely combination of low-normal B12, low-normal folate, and chronic disease b12 injections daily while here folate 1mg IV daily (15) DVT prophylaxis: heparin SC PT, OT evals appreciated making progress - perhaps home next 1-2 days Admission and Anticipated Discharge Date Admission Date: May 14, 2020 Subjective patient states "I'm feeling really good today". left foot/ankle pain just about resolved. able to ambulate w/o difficulty. stool via ileostomy starting to slightly firm up and output decreasing. eating well. abd pain improved. back pain improved. we discussed that her b12 and folate levels were borderline low - will recommend b12 injections due to ileostomy. Review of Systems Constitutional: no fever and no chills Respiratory: no cough, no dyspnea and no dyspnea on exertion Cardiovascular: no chest pain Gastrointestinal: no abdominal pain, no nausea and no vomiting Physical Exam Constitutional: + morbidly obese; no acute distress and no altered mental status looks much better today ENMT: Mouth: + dry oral mucous membranes Respiratory: normal respiratory effort, lungs clear to auscultation Cardiovascular: Rate/Rhythm: regular rate and regular rhythm Heart Sounds: normal S1 and normal S2; no murmur Vessels: posterior tibial pulses present and dorsalis pedis pulses present; no JVD Extremities: + edema (left foot/ankle - nearly resolved) Gastrointestinal (Abdomen): Inspection/Auscultation: normal bowel sounds; abdomen not distended Percussion/Palpation: abdomen soft; abdomen nontender and no hepatosplenomegaly ileostomy left abdomen -- stool not as liquid today Musculoskeletal: NO tenderness over left ankle or foot. full ROM of ankle/foot without any pain. Psychiatric: Orientation: alert and oriented x 3 Results & Data Results & Data ([facility]) Vital Signs (Past 12 Hours) Vital Signs Temp Pulse Resp BP Pulse Ox 05/17/20 15:11 36.7 C 65 20 111/61 97 Laboratory Results Laboratory Results - last 24 hr 05/17/20 05/17/20 05/17/20 06:29 06:29 06:29 WBC 10.45 RBC 3.39 L Hgb 9.7 L Hct 29.2 L MCV 86.1 MCH 28.6 MCHC 33.2 RDW Std Deviation 46.4 H RDW Coeff of Velvet 14.8 H Plt Count 294 MPV 9.1 Sodium 138 Potassium 3.7 Chloride 111 H Carbon Dioxide 21 Anion Gap 6.0 BUN 57 H Creatinine 2.62 H Est Cr Clr Drug Dosing 26.8 Est GFR ( Amer) 21.1 Est GFR (Non-Af Amer) 18.2 BUN/Creatinine Ratio 21.6 H Glucose 107 H POC Glucose Calcium 8.5 Iron 81 Transferrin 239 Transferrin % Sat 24 Ferritin 99.5 Vitamin B12 337 Folate 6.90 05/17/20 05/17/20 05/17/20 07:37 11:38 16:17 WBC RBC Hgb Hct MCV MCH MCHC RDW Std Deviation RDW Coeff of Velvet Plt Count MPV Sodium Potassium Chloride Carbon Dioxide Anion Gap BUN Creatinine Est Cr Clr Drug Dosing Est GFR ( Amer) Est GFR (Non-Af Amer) BUN/Creatinine Ratio Glucose POC Glucose 107 H 190 H 255 H Calcium Iron Transferrin Transferrin % Sat Ferritin Vitamin B12 Folate 05/17/20 20:29 WBC RBC Hgb Hct MCV MCH MCHC RDW Std Deviation RDW Coeff of Velvet Plt Count MPV Sodium Potassium Chloride Carbon Dioxide Anion Gap BUN Creatinine Est Cr Clr Drug Dosing Est GFR ( Amer) Est GFR (Non-Af Amer) BUN/Creatinine Ratio Glucose POC Glucose 103 H Calcium Iron Transferrin Transferrin % Sat Ferritin Vitamin B12 Folate PG Care Time/CCT Total # of Minutes Spent Total Time Spent with Patient: Total time spent is greater than 50% in coordination of care (as documented) at patient's floor/unit and/or counseling patient: Coding Level of Care Code 57064 Subseq Hosp Care Lvl 3 Diagnoses Gouty arthritis of left foot M10.9 ARF (acute renal failure) N17.9 Acute renal failure type: unspecified Dumping syndrome K91.[address] Z93.2 Crohns disease K50.919 Gastrointestinal tract location: unspecified location Digestive disease complication type: unspecified complication DM2 (diabetes mellitus, type 2) E11.9; Z79.4 Diabetes mellitus complication status: without complication Diabetes mellitus superintendent container terminal insulin use: with superintendent container terminal use Chronic low back pain M54.5; G89.29 Back pain laterality: unspecified Sciatica presence: unspecified whether sciatica present Obesity E66.01; Z68.36 Obesity type: unspecified obesity type Obesity classification: adult class 2 (BMI 35 - 39.9) Serious obesity comorbidity presence: with serious comorbidity Body mass index: BMI 36.0-36.9 Chronic kidney disease, stage 3a N18.[address] of the chest R93.89 Chronic abdominal pain R10.9; G89.29 UTI (urinary tract infection) N30.00 Urinary tract infection type: acute cystitis Hematuria presence: without hematuria Vitamin D deficiency E55.9 Anemia D64.9 DVT prophylaxis Z29.9 (1) ARF (acute renal failure) Acute renal failure type: unspecified Qualified Code(s): N17.9 - Acute kidney failure, unspecified (2) Crohns disease Gastrointestinal tract location: unspecified location Digestive disease compl ication type: unspecified complication Qualified Code(s): K50.919 - Crohn's disease, unspecified, with unspecified complications (3) DM2 (diabetes mellitus, type 2) Diabetes mellitus complication status: without complication Diabetes mellitus senior care insulin use: with senior care use Qualified Code(s): E11.9 - Type 2 diabetes mellitus without complications; Z79.4 - terminal manager (current) use of insulin (4) Chronic low back pain Back pain laterality: unspecified Sciatica presence: unspecified whether sciatica present Qualified Code(s): M54.5 - Low back pain; G89.29 - Other chronic pain (5) Obesity Obesity type: unspecified obesity type Obesity classification: adult class 2 (BMI 35 - 39.9) Serious obesity comorbidity presence: with serious comorbidity Body mass index: BMI 36.0-36.9 Qualified Code(s): E66.01 - Morbid (severe) obesity due to excess calories; Z68.36 - Body mass index [BMI] 36.0-36.9, adult (6) UTI (urinary tract infection) Urinary tract infection type: acute cystitis Hematuria presence: without hematuria Qualified Code(s): N30.00 - Acute cystitis without hematuria
[2020-05-18] MEDS: HEPARIN SOD 5,000 UNIT/0.5 ML VIAL SQ SCH ×2 (05:31→13:52)
[2020-05-18] MEDS: oxyCODONE HCL IR 5 MG TAB (IMMEDIATE RELEASE) PO PRN ×3 (05:39→17:04)
[2020-05-18 06:14] LABS: Hematocrit (blood only) 30.3 % (37-47); Hemoglobin 9.9 g/dL (12.0-16.0)
[2020-05-18 06:52] LABS: BUN Creatinine Ratio 26.6 (10-20); Calcium 8.4 mg/dl (8.5-10.1); Creatinine Clr Calc Pharmacy 31.9 ml/min; Est GFR (Non-African American) 22.5; Potassium 3.8 mmol/L (3.5-5.1)
[2020-05-18] MEDS: DULoxetine HCL 60 MG CAP PO SCH (07:55)
[2020-05-18] MEDS: LOPERAMIDE HCL 2 MG CAP PO SCH ×3 (07:55→17:04)
[2020-05-18] MEDS: FLUCONAZOLE 100 MG TAB PO SCH (07:55)
[2020-05-18] MEDS: FAMOTIDINE 20 MG TAB PO SCH (07:55)
[2020-05-18] MEDS: predniSONE 10 MG TABLET PO SCH (07:55)
[2020-05-18] MEDS: GABAPENTIN 100 MG CAP PO SCH (07:56)
[2020-05-18] MEDS: NYSTATIN POWDER 15GM BTL EXT SCH (07:56)
[2020-05-18] MEDS: FOLIC ACID 1 MG in SYRINGE 9.8 ML IV SCH (07:56)
[2020-05-18] MEDS: INSULIN ASPART 100 UNITS/ML 3 ML PEN SC SCH ×3 (08:13→17:18)
[2020-05-18] MEDS: CYANOCOBALAMIN 1000 MCG/ML VIAL IM SCH (09:07)
--- NOTE | 2020-05-18 12:26 | Discharge Summary ---
Date of Service date of admission - May 14, 2020 date of discharge - May 18, 2020 Admission HPI Per Admitting Provider Norma Remy is a 65yo C female with history of DM, HLP. She developed pain and swelling in her left foot 5 days ago and was subsequently diagnosed with cellulitis. She was started on Keflex 3 days ago and has been taking it as prescribed with no improvement. She reports her toes were purple and discolored this AM which prompted her to come to the ER. Patient with ileostomy and reports increased liquid output over the last 3-4 days. Dizziness with ambulation and pain in left foot with weight bearing. She denies fevers but has had some chills. Denies CP/SOB. Has had a slight, non-productive cough. Had some nausea and vomiting last week which has resolved. +UOP but decreased from baseline. No additional complaints at this time. No Covid-19 exposure. ER Course: Vancomycin, Cefepime, NSS, Dilaudid Principal Diagnosis 1. left ankle and left mid-foot acute gouty arthritis 2. acute kidney injury 2nd to dehydration from high-output ileostomy Discharge Exam Constitutional + morbidly obese; no acute distress and no altered mental status ENMT external ear and nose normal, oropharynx normal Respiratory normal respiratory effort, lungs clear to auscultation Cardiovascular Rate/Rhythm: regular rate and regular rhythm Heart Sounds: normal S1 and normal S2; no murmur Vessels: posterior tibial pulses present and dorsalis pedis pulses present; no JVD Extremities: + edema (left foot/ankle - nearly resolved) Gastrointestinal (Abdomen) Inspection/Auscultation: normal bowel sounds; abdomen not distended Percussion/Palpation: abdomen soft; abdomen nontender and no hepatosplenomegaly ileostomy left abdomen with slightly formed stool in the bag Musculoskeletal synovitis of left ankle and left mid-foot RESOLVED Skin + scar (Abdominal wall) no signs of cellulitis of left foot or ankle or [place] Psychiatric Orientation: alert and oriented x 3 Discharge Data Allergies Allergy/AdvReac Type Severity Reaction Status Date / Time tramadol AdvReac Intermediate Nausea Verified 05/14/20 19:50 Consultations PT, OT Nutrition Wound care Ordered Studies 05/14/20 15:43 CT abd pelvis wo con Stat IMPRESSION: 1. Patchy airspace consolidation is seen in the right middle lobe. Correlate clinically for evidence of an infectious/inflammatory pneumonitis. 2. There is postoperative change from subtotal colectomy with left lower q uadrant ileostomy. No bowel obstruction is seen. 3. Bilateral nephrolithiasis. 4. Cholelithiasis. 05/14/20 15:48 US arterial duplex LE LT Stat IMPRESSION: Monophasic waveforms seen throughout the majority of the left lower extremity arterial system likely due to the diffusely calcified plaque. No hemodynamically significant stenosis or occlusion identified. 05/15/20 US venous doppler LE LT Routine - no DVT in the left leg. Hospital Course (1) Gouty arthritis of left foot: Left mid-foot and left ankle. This was NOT cellulitis and antibiotics were not given during the stay or at discharge. Uric acid level >14. Sed rate/crp elevated (78, and 3.3 respectively). Likely cause of gout -- CKD. Initiated on low-dose prednisone and within 24 hours was able to weight-bear. By discharge her synovitis was essentially gone. Left Ankle/foot x-rays without osteomyelitis, CPPD changes, or fractures. Will complete a brief course of oral prednisone post-discharge. She was advised that additional gout flares were possible given her CKD. Consider allopurinol prophylaxis in the future if she has recurrent flares. (2) ARF (acute renal failure): 2nd volume depletion from dumping through ileostomy, etc. IMPROVED with IV fluids. Peak Cr 4, improving to 2.2 at discharge. Cr in 02/2019 was 2.1 so I am assuming her baseline Creatinine is about 2. Recommended a repeat BMP within a week of discharge for stability. (3) Dumping syndrome: Ileostomy in place. h/o colectomy for Crohn's. Copious daily output leading to dehydration/PERLA. C diff testing was negative. Stool culture grew audrey albicans. Audrey was treated with diflucan, and she was started on loperamide 2mg TID with meals. With these measures her ileostomy output greatly improved to <1500cc/day. She may need the loperamide indefinitely, or perhaps just short-term if her recent dumping was due to audrey infection. She should follow-up with her primary GI specialist, Dr Jasmyne Bee, with [facility]. (4) Ileostomy in place: see above (5) Crohns disease: long-standing. h/o colectomy. ileostomy in place. on humira. no active disease on recent abdominal imaging. C diff testing negative while hospitalized. Stool cx grew audrey albicans - sent home with diflucan course for such. (6) DM2 (diabetes mellitus, type 2): Uncontrolled due to steroids but improved with insulin adjustments. Received combination of levemir and novolog during the stay with improved glycemic control. She will continue levemir 40 units daily at discharge along with novolog 5 units TID w/ meals. (7) Chronic low back pain: previously on pain contract in [place]. likely severe DJD. CT abd/pelvis showed advanced/severe spondylosis of l-spine. cont oxycodone prn. (8) Obesity: BMI 36 (9) Chronic kidney disease, stage 3a: baseline Cr about 2?? had PERLA during the stay as noted above discharge Cr 2.2 needs repeat BMP within a week of discharge to ensure stability (10) Abnormal CT of the chest: RML infiltrates, but no pulmonary symptoms. no fever. COVID-19 testing negative. o2 sats wnl in [place] the entire stay. Antibiotics were deferred during the stay and at discharge. (11) Chronic abdominal pain: has gallstones but no pain with eating. LFTs, lipase acceptable. gastritis? other? cont pepcid once daily. (12) UTI (urinary tract infection): 2nd to audrey albicans. course of diflucan 100mg daily. (13) Vitamin D deficiency: ergocalciferol 86277 units weekly x 8 weeks vitamin D level = 14.4. (14) Anemia: likely combination of low-normal B12, low-normal folate, and chronic disease ferritin level was 99; transferrin saturation was 24%; iron supplementation deferred b12 injections daily while here for level of 337 she likely has impaired absorption of vitamin B12 due to her Crohn's so I recommended she f/u with her PCP for routine, monthly B12 injections folate level was 6.9 which was just shy of being deficiency thus, recommended folic acid 1mg daily for 30 days Total Time Total Time Spent Total Time Spent (In Minutes): 45 Total Time Includes: Examination of the Patient, Discharge Planning and Medication Reconciliation Discharge Plan Discharge Items Patient Disposition: Home - Home Health Services Reason For Visit: Dehydration, left foot & ankle pain Discharge Diagnosis: 1. gout attack of left foot and ankle - resolved 2. dehydration - resolved 3. copious/high-output stooling from ileostomy - improved 4. urinary tract infection due to yeast 5. yeast infection in stool 6. chronic back pain 7. b12 and folate deficiencies 8. vitamin D deficiency Activity: Resume your previous activity Non-emergency contact: Primary Care Provider and Labor Expediter Call non-emergency contact if: you have any medication questions, your symptoms worsen and you have a fever Follow-up/Referrals: Jasmyne Bee, [Physician] - (please see Dr Bee - [facility] - 1-2 weeks) Ji Munoz M.D. [Primary Care Provider] - (see your family doctor within 3- 4 days ) Diet: Carb Consistent or DM2 and Low Fiber Addtl Attending Provider Instructions: You were treated for the problems listed above in "discharge diagnoses." Your 2 main problems while here were left foot & ankle pain discovered to be due to gout. Your x-rays did NOT show fractures or infection. Your uric acid level (gout level) was very high at 14 -- likely due to chronic kidney disease. Your gout improved rapidly with low-dose prednisone. You were quite dehydrated upon arrival. The dehydration occurred because of significant "dumping" of stool from your ileostomy. We found a yeast infection in the stool while here and also yeast in your urine. This was treated with yeast medication. The stool output improved with use of loperamide (immodium) with meals. At discharge your creatinine (kidney level) is 2.2. COVID-19 testing was on 05/14/20. It was negative. Finally, we found several nutritional deficiencies including vitamin B12, folate, and vitamin D. You will need supplements for each. Recommendations: 1. for gout in left foot/ankle - take prednisone 5mg once daily for 7 days, first dose tomorrow 05/19/20. Please know that the prednisone will raise your blood sugars. See gout handout. 2. for folic acid deficiency - take folate 1mg daily x 60 days. 3. for vitamin B12 deficiency - please ask your family doctor to give you monthly injections at the office. Your body may not absorb vitamin B12 by mouth because of your Crohn's/ileostomy. 4. for vitamin D deficiency - take 1 capsule once a week for 8 weeks. Start this next week on any day. 5. for your stool and to slow down the amount - take [id number]-[id number] immodium 2mg with breakfast, 2mg with lunch, and 2mg with dinner. Follow-up with Dr Bee - [facility] - in 1-2 weeks for this. Please try to measure the amount of stool you are putting out daily and give those amounts to Dr Bee. This will help determine if you need additional meds to slow things down. 6. yeast in urine and stool - take fluconazole 100mg daily for 7 days, first dose tomorrow on 05/19/20. 7. for back pain - oxycodone 5mg every 4 hours as needed for pain. DO NOT DRIVE AND DO NOT DRINK ALCOHOL WHILE TAKING NARCOTIC PAIN KILLER MEDICATION. KNOW THAT OXYCODONE MAY MAKE YOU SLEEPY. 8. for stomach pain/heartburn - take famotidine 20mg once daily every day. 9. increase your levemir insulin to 40 units once daily. 10. get your flu shot soon. 11. continue to wear a mask any time you leave your home & practice social distancing to avoid the COVID-19 virus. Follow-up - see separate section. Please have your family doctor repeat a CBC and BMP THIS WEEK. This is blood work. Return to any hospital if - * you have fevers over 100 degrees * you have concerns of dehydration * you have uncontrolled back or abdominal pain * you are short of breath * any other concerns Pending Studies at Discharge: No Stand-Alone Forms: [facility], Sm[facility] Cess[facility] Medications and DC Order Prescriptions: New loperamide 2 mg Capsule 2 mg PO AC Qty: 60 RF: 1 famotidine 20 mg Tablet 20 mg PO QAM Qty: 30 RF: 2 oxycodone 5 mg Tablet 5 mg PO Q4H PRN (Reason: pain) Qty: 20 RF: 0 folic acid 1 mg tablet 1 mg PO DAILY Qty: 30 RF: 1 ergocalciferol (vitamin D2) 1,250 mcg (50,000 unit) capsule 1,250 mcg PO .weekly Qty: 4 RF: 1 Continued gabapentin [Neurontin] 600 mg tablet 300 mg PO BID RF: 0 duloxetine 60 mg capsule,delayed release(DR/EC) 60 mg PO DAILY RF: 0 Humira Pen 40 mg/0.8 mL pen injector kit 40 mg SUBCUT UD RF: 0 acetaminophen [Tylenol Extra Strength] 500 mg Tablet 500 mg PO Q4H MDD 3000 MG APAP/24 HOURS PRN (Reason: Pain) RF: 0 nystatin [Nyamyc] 100,000 unit/gram powder 1 applic topical DIRECTED RF: 0 ondansetron 4 mg tablet,disintegrating 4 mg PO Q8H PRN (Reason: Nausea) RF: 0 insulin aspart U-100 [Novolog Flexpen U-100 Insulin] 100 unit/mL (3 mL) insulin pen 5 unit subcut AC RF: 0 Changed Levemir FlexTouch U-100 Insuln 100 unit/mL (3 mL) insulin pen 40 unit subcut HS Qty: 1 RF: 0 Discontinued cephalexin [Keflex] 500 mg capsule 500 mg PO QID RF: 0 Discharge Orders: Discharge Order (Routine); Ordered 05/18/20 Ordered By: Deng Corcoran/Other Patient Handouts: What Is Gout? Admission Data Admit Date/Time: 05/14/20 20:22 Attending Provider: Deng Cordero Admit Provider: Kristin Garg Primary Care Provider: Ji Munoz Other Interventions: Discharge Summary Assessment (RN) Last Done: 05/18/20 12:27 Coding Level of Care Code D/C Day Management >30 mins Diagnoses Gouty arthritis of left foot M10.9 ARF (acute renal failure) N17.9 Acute renal failure type: unspecified Dumping syndrome K91.[address] Z93.2 Crohns disease K50.919 Digestive disease complication type: unspecified complication Gastrointestinal tract location: unspecified location DM2 (diabetes mellitus, type 2) E11.9; Z79.4 Diabetes mellitus complication status: without complication Diabetes mellitus chcf insulin use: with long term care phlebotomist use Chronic low back pain M54.5; G89.29 Back pain laterality: unspecified Sciatica presence: unspecified whether sciatica present Obesity E66.01; Z68.36 Body mass index: BMI 36.0-36.9 Obesity classification: adult class 2 (BMI 35 - 39.9) Obesity type: unspecified obesity type Serious obesity comorbidity presence: with serious comorbidity Chronic kidney disease, stage 3a N18.[address] of the chest R93.89 Chronic abdominal pain R10.9; G89.29 UTI (urinary tract infection) N30.00 Hematuria presence: without hematuria Urinary tract infection type: acute cystitis Vitamin D deficiency E55.9 Anemia D64.9
== END 2020-05-18 17:50 | disposition home health service (06) | DRG 699 ==
LOC: ED 15:02 → 2N 20:22 → SUATTDRO 20:22 → 2N 22:29